=== PATIENT | male | born 1960 | race Caucasian/White ===

== ENCOUNTER 2016-09-20 10:27 | Emergency (ER) | payer OTHER ==
[~2016-09-20 10:27] MED LIST: AMLO10 PO; ASPI81 PO; ATOR40TA49 PO; CLOP75 PO; LISI-363 PO
[2016-09-20 10:29] VITALS: BP 181/93; PULSE 71; RESP 17; TEMP 98.2; O2SAT 98
--- NOTE | 2016-09-20 12:06 | PD ---
HPI Chief Complaint: Back/ Neck Pain or Injury Time Seen by Provider: 12:03 Travel History International Travel<30 days: No Contact w/Intl Traveler<30days: No Traveled to known affect area: No History of Present Illness HPI 55-year-old male presents to the emergency Department with complaint of right mid back pain with worsening since last night after working. He has had the back pain for 6 months. He has been taking Flexeril as prescribed with minimal relief of symptoms. 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 He denies paresthesias, loss of sensation, decreased range of motion, decreased strength to all extremities. Denies fever, chills, nausea, vomiting, abdominal pain. Denies IV drug use. Denies cancer. Denies change in gait. Has not taken any other medications return either treatment CVA symptoms. No known allergies. Takes Plavix for history of stent placement. History of hypertension. [facility] of [facility]. No other modifying factors or associated signs and symptoms. PFSH Past Medical History Hx Anticoagulant Therapy: Yes Blood Disorders: No Heart Rhythm Problems: No Cancer: No Cardiac Catheterization: Yes (with stent) Cardiovascular Problems: Yes High Cholesterol: Yes Chemotherapy: No Chest Pain: Yes Congestive Heart Failure: Yes Coronary Artery Disease: Yes Diminished Hearing: No Endocrine: No Genitourinary: No Hypertension: Yes Immune Disorder: No Musculoskeletal: Yes (back pain) Neurologic: No Psychiatric: No Reproductive: No Respiratory: No Myocardial Infarction: Yes (2006) Past Surgical History Abdominal Surgery: No AICD: No Arteriovenous Shunt: No Cardiac Surgery: No Coronary Stent: Yes (2006) Ear Surgery: No Endocrine Surgery: No Eye Surgery: No Genitourinary Surgery: No Gynecologic Surgery: No Insulin Pump: No Joint Replacement: No Oral Surgery: No Pacemaker: No Thoracic Surgery: No Other Surgery: Yes (HEMMORIDECTOMY) Social History Alcohol Use: Yes (6 DRINKS PER WEEK) Tobacco Use: No Substance Use: No Allergies-Medications (Allergen,Severity, Reaction): Coded Allergies: No Known Allergies (Verified , 07/26/15) Reported Meds & Prescriptions Reported Meds & Active Scripts Active Lipitor 40 Mg Tab (Atorvastatin Calcium) 40 Mg Tab 40 Mg PO HS Norvasc (Amlodipine Besylate) 10 Mg Tab 10 Mg PO DAILY 30 Days Plavix (Clopidogrel Bisulfate) 75 Mg Tab 75 Mg PO DAILY Lisinopril 20 mg (Lisinopril) 20 Mg Tab 1 Tab PO DAILY 30 Days Aspirin Low Strength (Aspirin) 81 Mg Chew 81 Mg PO DAILY 30 Days Review of Systems Except as stated in HPI: all other systems reviewed are Neg Physical Exam Narrative GENERAL: Well-nourished, well-developed male patient, in no acute distress SKIN: Warm and dry. HEAD: Atraumatic. Normocephalic. EYES: Pupils equal and round. No scleral icterus. No injection or drainage. ENT: Mucosa pink and moist. Airway patent. NECK: Trachea midline. CARDIOVASCULAR: Regular rate. RESPIRATORY: No accessory muscle use. GASTROINTESTINAL: Rounded. MUSCULOSKELETAL: Bilateral lower extremities supple and non-tense with 2+ pedal pulses and sensory intact; with full range of motion and 5/5 strength. Active dorsiflexion and extension of bilateral feet. Ambulatory with normal gait in room. Sitting up in bed at 90. No obvious deformities. No clubbing. No cyanosis. No edema. BACK: No midline point tenderness on palpation of the lumbar, thoracic spine. Tenderness on palpation of right musculature of the thoracic area. No obvious deformities. NEUROLOGICAL: Awake and alert. Oriented 3. No obvious cranial nerve deficits. Motor grossly within normal limits. Normal speech. Moves all extremities. 5/5 strength to all extremities. Sensory intact. PSYCHIATRIC: Appropriate mood and affect; insight and judgment normal. Data Data Last Documented VS Vital Signs Date Time Temp Pulse Resp B/P Pulse Ox O2 Delivery O2 Flow Rate FiO2 09/20/16 10:29 98.2 71 17 181/93 98 MDM Medical Decision Making Medical Screen Exam Complete: Yes Emergency Medical Condition: Yes Medical Record Reviewed: Yes Differential Diagnosis Muscle spasm in the back, muscle strain of back, acute exacerbation of chronic back pain Narrative Course 55-year-old male with chronic right mid thoracic back pain 6 months with exacerbation of pain since after working last night doing some heavy lifting. He has a prescription for Flexeril and has been taking it. [facility] and [facility] He last took Flexeril at 5 AM this morning. Denies IV drug use. Denies cancer. Patient is afebrile and nontoxic-appearing. He denies fever, chills, nausea, vomiting. No midline point tenderness of the thoracic or lumbar spine. Norflex administered in the ER. Patient will get prescription refilled from the [facility] for [facility]. Instructed patient to continue medications as prescribed. Patient verbalizes understanding and agreement with treatment plan. Patient is medically cleared and stable for discharge. Discussed reasons to return to the emergency department. Instructed patient to follow up with primary care provider. Patient agrees with treatment plan. The patients vital signs are stable and the patient is stable for outpatient follow-up and treatment. Patient discharged home, stable and in no acute distress. Diagnosis Primary Impression: Spasm of thoracic back muscle Additional Impression: Muscle strain of right upper back Qualified Code: S29.012A - Muscle strain of right upper back, initial encounter Referrals: Primary Care Physician Patient Instructions: General Instructions, Muscle Spasm (ED), Muscle Strain ( ED) Departure Forms: Tests/Procedures, Work Release Enter return to work date: Sep 22, 2016 Additional Instructions: Tylenol as directed and as needed for pain Continue medications as prescribed Heating pad and/or ice to affected area to reduce pain Avoid aggravating activities; increase activity as tolerated Follow-up with primary care provider Return to emergency department immediately with worsening of symptoms Med/Other Pt SpecificInfo: No Change to Meds, No Meds Exist/No RX given Disposition: DISCHARGE HOME Condition: Stable Keeley Elmore Sep 20, 2016 12:06
[2016-09-20] MEDS ORDERED: ORPHENADRINE INJ 60 MG/2 ML AMP IM ONE (12:15)
== END 2016-09-20 12:38 | disposition home or self-care (01) ==
LOC: NETRI 10:27
DX: M62.830 Muscle spasm of back (principal); S29.012A Strain of muscle and tendon of back wall of thorax, initial encounter; I10 Essential (primary) hypertension; X50.0XXA Overexertion from strenuous movement or load, initial encounter; Y93.89 Activity, other specified; Y92.9 Unspecified place or not applicable; Y99.0 Civilian activity done for income or pay; Z79.01 Long term (current) use of anticoagulants
CPT/HCPCS: 99283; J2360

== ENCOUNTER 2017-02-23 19:10 | Emergency (ER) | payer OTHER ==
[~2017-02-23] VITALS: Ht 177.8 cm; Wt 140.0 kg
[2017-02-23 19:12] VITALS: BP 138/75; PULSE 87; RESP 18; TEMP 97.7; O2SAT 97
--- NOTE | 2017-02-23 19:26 | PD ---
Physical Exam Time Seen by Provider: 19:24 Narrative 56yo M c/o "muscle cramps from top of belly to toes" and SOB today. Denies chest pain. Denies fever, diarrhea, vomiting. Had stent and angioplasty on February 10, 2017. Patient seen in triage. VS reviewed. Awaiting bed placement. Data Data Last Documented VS Vital Signs Date Time Temp Pulse Resp B/P (MAP) Pulse Ox O2 Delivery O2 Flow Rate FiO2 02/23/17 19:12 97.7 87 18 138/75 (96) 97 Room Air MDM Supervised Visit with JIM: Keeley Vicente Feb 23, 2017 19:26
[2017-02-23] MEDS ORDERED: LOSA100T PO (22:31)
[2017-02-23] MEDS ORDERED: ASPI81CH CHEW (22:31)
[2017-02-23] MEDS ORDERED: PLAV75TA29 PO (22:31)
[2017-02-23] MEDS ORDERED: ATOR40TA16 PO (22:31)
[2017-02-23] MEDS ORDERED: CHLO25TA2 PO (22:31)
[2017-02-23] MEDS ORDERED: METO25TA3 PO (22:31)
[2017-02-23] MEDS ORDERED: CYCL1TAB29 PO (22:31)
[2017-02-23] MEDS ORDERED: AMLO10TA2 PO (22:31)
[2017-02-23 22:35] VITALS: O2SAT 97
[2017-02-23] MEDS ORDERED: MORPHINE SULFATE 4 MG/ML INJ IV PUSH ONE (22:45)
[2017-02-23] MEDS ORDERED: SODIUM CHLORIDE 0.9% FLUSH 10 ML FLUSH IVF PRN (22:45)
--- NOTE | 2017-02-23 23:22 | PD ---
HPI Chief Complaint: Respiratory Distress Time Seen by Provider: 22:21 Travel History International Travel<30 days: No Contact w/Intl Traveler<30days: No Traveled to known affect area: No History of Present Illness HPI 56yo M with PMH of CAD s/p cardiac stent presents to the ED with c/o sob and generalized body cramps since 4pm today. States the pain is all over his body and it is cramping in nature. Sometimes it is in his abdomen, back, bilateral thighs. Pt has history of back pain and was seen here for back muscle spasm before. 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 Denies any chest pain. Denies any fever, cough, n/v, abdominal pain, focal weakness or numbness. PFSH Past Medical History Hx Anticoagulant Therapy: Yes Blood Disorders: No Heart Rhythm Problems: No Cancer: No Cardiac Catheterization: Yes (with stent, angioplasty 2 stents 2 weeks ago 02/23 ) Cardiovascular Problems: Yes High Cholesterol: Yes Chemotherapy: No Chest Pain: Yes Congestive Heart Failure: Yes Coronary Artery Disease: Yes Diminished Hearing: No Endocrine: No Genitourinary: No Hypertension: Yes Immune Disorder: No Musculoskeletal: Yes (back pain) Neurologic: No Psychiatric: No Reproductive: No Respiratory: No Myocardial Infarction: Yes (2006) Past Surgical History Abdominal Surgery: No AICD: No Arteriovenous Shunt: No Cardiac Surgery: No Coronary Stent: Yes (2006) Ear Surgery: No Endocrine Surgery: No Eye Surgery: No Genitourinary Surgery: No Gynecologic Surgery: No Insulin Pump: No Joint Replacement: No Oral Surgery: No Pacemaker: No Thoracic Surgery: No Other Surgery: Yes (HEMMORIDECTOMY) Family History Family Myocardial Infarction: Yes Social History Alcohol Use: Yes (6 DRINKS PER WEEK) Tobacco Use: No Substance Use: No Allergies-Medications (Allergen,Severity, Reaction): Coded Allergies: No Known Allergies (Verified , 07/26/15) Reported Meds & Prescriptions Reported Meds & Active Scripts Active Tylenol (Acetaminophen) 325 Mg Tab 650 Mg PO Q6H PRN Reported Amlodipine (Amlodipine Besylate) 10 Mg Tab 10 Mg PO DAILY Losartan (Losartan Potassium) 100 Mg Tab 100 Mg PO DAILY Atorvastatin (Atorvastatin Calcium) 40 Mg Tab 40 Mg PO HS Chlorthalidone 25 Mg Tab 25 Mg PO DAILY Plavix (Clopidogrel Bisulfate) 75 Mg Tab 75 Mg PO DAILY Flexeril (Cyclobenzaprine HCl) 10 Mg Tab 10 Mg PO TID Metoprolol Tartrate 25 Mg Tab 25 Mg PO DAILY Aspirin 81 Mg Chew 81 Mg CHEW DAILY Review of Systems Except as stated in HPI: all other systems reviewed are Neg Physical Exam Narrative GENERAL: 56yo M in mild distress. SKIN: Focused skin assessment warm/dry. HEAD: Atraumatic. Normocephalic. EYES: Pupils equal and round. No scleral icterus. No injection or drainage. ENT: No nasal bleeding or discharge. Mucous membranes pink and moist. NECK: Trachea midline. No JVD. CARDIOVASCULAR: Regular rate and rhythm. No murmur appreciated. RESPIRATORY: No accessory muscle use. Clear to auscultation. Breath sounds equal bilaterally. GASTROINTESTINAL: Abdomen soft, mild upper abdomen pain. No rebound tenderness or guarding. BACK: No midline ttp thoracic or lumbar spine. MUSCULOSKELETAL: No obvious deformities. No clubbing. No cyanosis. No edema. NEUROLOGICAL: Awake and alert. No obvious cranial nerve deficits. Motor grossly within normal limits. Normal speech. PSYCHIATRIC: Appropriate mood and affect; insight and judgment normal. Data Data Last Documented VS Vital Signs Date Time Temp Pulse Resp B/P (MAP) Pulse Ox O2 Delivery O2 Flow Rate FiO2 02/23/17 22:35 97 Room Air 02/23/17 22:27 73 02/23/17 19:12 97.7 18 Orders Orders Basic Metabolic Panel (Bmp) (02/23/17 22:32) B-Type Natriuretic Peptide (02/23/17 22:32) Complete Blood Count With Diff (02/23/17 22:32) Magnesium (Mg) (02/23/17 22:32) Prothrombin Time / Inr (Pt) (02/23/17 22:32) Act Partial Throm Time (Ptt) (02/23/17 22:32) Troponin I (02/23/17 22:32) Chest, Single Ap (02/23/17 22:32) Ecg Monitoring (02/23/17 22:32) Bilateral Bp Monitoring (02/23/17 22:32) Iv Access Insert/Monitor (02/23/17 22:32) Oximetry (02/23/17 22:32) Oxygen Administration (02/23/17 22:32) Sodium Chloride 0.9% Flush (Ns Flush) (02/23/17 22:45) Morphine Inj (Morphine Inj) (02/23/17 22:45) Creatine Kinase (Cpk) (02/23/17 23:49) Ct Abd/Pel W/O Iv Contrast (02/23/17 ) CKMB (02/23/17 22:50) CKMB% (02/23/17 22:50) Sodium Chlor 0.9% 1000 Ml Inj (Ns 1000 M (02/24/17 01:15) Diazepam (Valium) (02/24/17 01:15) Labs Laboratory Tests Test 02/23/17 22:50 White Blood Count 11.7 TH/MM3 Red Blood Count 5.58 MIL/MM3 Hemoglobin 13.9 GM/DL Hematocrit 42.2 % Mean Corpuscular Volume 75.7 FL Mean Corpuscular Hemoglobin 24.9 PG Mean Corpuscular Hemoglobin Concent 32.9 % Red Cell Distribution Width 17.5 % Platelet Count 217 TH/MM3 Mean Platelet Volume 9.4 FL Neutrophils (%) (Auto) 74.6 % Lymphocytes (%) (Auto) 16.6 % Monocytes (%) (Auto) 7.4 % Eosinophils (%) (Auto) 0.6 % Basophils (%) (Auto) 0.8 % Neutrophils # (Auto) 8.7 TH/MM3 Lymphocytes # (Auto) 1.9 TH/MM3 Monocytes # (Auto) 0.9 TH/MM3 Eosinophils # (Auto) 0.1 TH/MM3 Basophils # (Auto) 0.1 TH/MM3 CBC Comment DIFF FINAL Differential Comment Prothrombin Time 11.4 SEC Prothromb Time International Ratio 1.0 RATIO Activated Partial Thromboplast Time 26.0 SEC Blood Urea Nitrogen 21 MG/DL Creatinine 1.84 MG/DL Random Glucose 127 MG/DL Calcium Level 9.7 MG/DL Magnesium Level 2.2 MG/DL Sodium Level 133 MEQ/L Potassium Level 3.9 MEQ/L Chloride Level 98 MEQ/L Carbon Dioxide Level 20.6 MEQ/L Anion Gap 14 MEQ/L Estimat Glomerular Filtration Rate 38 ML/MIN Total Creatine Kinase 517 U/L Creatine Kinase MB 3.0 NG/ML Creatine Kinase MB % 0.6 % Troponin I LESS THAN 0.02 NG/ML B-Type Natriuretic Peptide 5 PG/ML MDM Medical Decision Making Medical Screen Exam Complete: Yes Emergency Medical Condition: Yes Interpretation(s) EKG: NSR 77bpm. Normal axis. No ST segment elevation or depression. TWI V2. Differential Diagnosis Muscle spasm vs. rhabdomyolysis vs. chronic back pain vs. dehydration vs. colitis Narrative Course 56yo M with complaint of muscle cramps in different parts of his body. Labs reviewed, WBC 11.7. BUN/creatinine elevated at 21/1.84. This is new compare to 07/28/15. CPK mildly elevated at 517. Pt given NS IVF. Troponin negative. BNP 5. Pt is tolerating PO and can hydrate orally. CXR negative. CTa/p showed no acute finding. Pt given morphine and valium with improvement of pain. Pt ambulating in the ED. Pt wants to go home. I informed him of the elevated creatinine and need to follow up with PMD and think that urgent outpatient follow up and oral hydration is reasonable since pt does not want to stay. Return precautions given. Diagnosis Primary Impression: JULIANNA (acute kidney injury) Patient Instructions: General Instructions Departure Forms: Tests/Procedures Additional Instructions: Please drink plenty of fluids to hydrate yourself. Please follow up with your primary care physician in 1-2 days for elevated creatinine at 1.84. Return to the ED if symptoms worsen. Med/Other Pt SpecificInfo: Prescription(s) given Scripts Acetaminophen (Tylenol) 325 Mg Tab 650 MG PO Q6H Y for PAIN SCALE 1 TO 4, #20 TAB 0 Refills Prov: Lore Stovall 02/24/17 Disposition: 01 DISCHARGE HOME Condition: Stable Lore Stovall DO Feb 23, 2017 23:22
[2017-02-23 23:25] LABS: AUTOMATED NEUTROPHIL # 8.7 TH/MM3 (1.8-7.7); BASOPHIL # 0.1 TH/MM3 (0-0.2); BASOPHIL % 0.8 % (0.0-2.0); EOSINOPHIL # 0.1 TH/MM3 (0-0.4); EOSINOPHIL % 0.6 % (0.0-4.0); HEMATOCRIT 42.2 % (39.0-51.0); HEMO FLAGS DIFF FINAL; LYMPH % 16.6 % (9.0-44.0); LYMPHOCYTE # 1.9 TH/MM3 (1.0-4.8); MEAN CELL VOLUME 75.7 FL (80.0-100.0); MEAN CORPUSCULAR HEMOGLOBIN 24.9 PG (27.0-34.0); MEAN CORPUSCULAR HGB CONC 32.9 % (32.0-36.0); MONO % 7.4 % (0.0-8.0); NEUT % 74.6 % (16.0-70.0); PLATELET COUNT 217 TH/MM3 (150-450); RED BLOOD COUNT 5.58 MIL/MM3 (4.50-5.90); RED CELL DISTRIBUTION WIDTH 17.5 % (11.6-17.2); WHITE BLOOD COUNT 11.7 TH/MM3 (4.0-11.0)
[2017-02-23 23:41] LABS: ANION GAP 14 MEQ/L (5-15); BICARBONATE 20.6 MEQ/L (21.0-32.0); BLOOD UREA NITROGEN 21 MG/DL (7-18); CHLORIDE 98 MEQ/L (98-107); GLOMERULAR FILTRATION RATE 38 ML/MIN (>89); MAGNESIUM 2.2 MG/DL (1.5-2.5); POTASSIUM 3.9 MEQ/L (3.5-5.1); SODIUM (NA) 133 MEQ/L (136-145)
[2017-02-23 23:44] LABS: PROTHROMBIN TIME - PATIENT 11.4 SEC (9.8-11.6)
--- NOTE | 2017-02-24 00:34 | RADRPT ---
EXAM DATE/TIME: 02/24/2017 00:18 [facility] COMPARISON: No previous studies available for comparison. INDICATIONS : Upper abdominal pain. ORAL CONTRAST: No oral contrast ingested. RADIATION DOSE: 36.23 CTDIvol (mGy) ; Patient body habitus MEDICAL HISTORY : Cardiovascular disease. Hypertension. SURGICAL HISTORY : Coronary artery stent. ENCOUNTER: Initial ACUITY: 1 day PAIN SCALE: 10/10 LOCATION: Bilateral abdomen TECHNIQUE: Volumetric scanning of the abdomen and pelvis was performed. Using automated exposure control and ad justment of the mA and/or kV according to patient size, radiation dose was kept as low as reasonably achievable to obtain optimal diagnostic quality images. DICOM format image data is available electro nically for review and comparison. FINDINGS: Patient arm positioning causes artifact and degrades image quality. LOWER LUNGS: There is a 3 mm subpleural nodule in the left lower lobe. Coronary artery calcification is present. LIVER: Diffuse decreased density without lesion. There is no dilation of the biliary tree. No calcified ga llstones. SPLEEN: Normal size without lesion. PANCREAS: Within normal limits. KIDNEYS: Normal in size and shape. There is no mass, stone, or hydronephrosis. ADRENAL GLANDS: Within normal limits. VASCULAR: There is no aortic aneurysm. There is moderate to severe atherosclerotic disease. BOWEL/MESENTERY: The stomach, small bowel, and colon demonstrate no acute abnormality. There is no free intraperitone al air or fluid. ABDOMINAL WALL: Within normal limits. RETROPERITONEUM: There is no lymphadenopathy. BLADDER: No wall thickening or mass. REPRODUCTIVE: Within normal limits. INGUINAL: There is no lymphadenopathy or hernia. MUSCULOSKELETAL: There are degenerative changes of the lumbar spine. Bone island is present in the femoral heads bilat erally. CONCLUSION: 1. No acute finding is identified on this noncontrasted CT to explain the clinical symptoms. 2. Nonacute findings include hepatic steatosis, moderate to severe atherosclerotic disease, and coron cristobal artery calcification. Joel Colvin MD on February 24, 2017 at 0:27 Board Certified Radiologist. This report was verified electronically.
[2017-02-24] MEDS ORDERED: SODIUM CHLOR 0.9% 1000 ML INJ 1,000 ML IV ONE (01:15)
[2017-02-24] MEDS ORDERED: DIAZEPAM 5 MG TAB PO ONE (01:15)
--- NOTE | 2017-02-24 02:22 | RADRPT ---
EXAM DATE/TIME: 02/24/2017 02:14 [facility] COMPARISON: CHEST SINGLE AP, July 26, 2015, 12:51. INDICATIONS : Chest pain MEDICAL HISTORY : None. SURGICAL HISTORY : None. ENCOUNTER: Initial ACUITY: 1 day PAIN SCORE: 7/10 LOCATION: Bilateral chest FINDINGS: Portable AP view of the chest demonstrates a normal-sized cardiac silhouette. No effusion, consolidat ion, or pneumothorax is visualized. The bones and soft tissues demonstrate no acute abnormality. CONCLUSION: No acute cardiopulmonary abnormality is identified. Joel Colvin MD on February 24, 2017 at 2:20 Board Certified Radiologist. This report was verified electronically.
[2017-02-24] MEDS ORDERED: TYLE325T PO ×2 (04:07→04:26)
--- NOTE | 2017-02-25 00:46 | EKG ---
Date Performed: 02/23/2017 Time Performed: 22:24:30 PTAGE: 56 years EKG: Sinus rhythm INCOMPLETE RIGHT BUNDLE BRANCH BLOCK NONSPECIFIC T-WAVE ABNORMALITY BORDERLINE ECG Compared to the PREVIOUS TRACING from 07/27/15, incomplete right bundle branch block is new DOCTOR: Neal Garay Interpretating Date/Time 02/25/2017 00:45:54
== END 2017-02-24 04:27 | disposition home or self-care (01) ==
LOC: NEPC 19:10
DX: N17.9 Acute kidney failure, unspecified (principal); R06.02 Shortness of breath; M79.1 Myalgia; R94.31 Abnormal electrocardiogram [ECG] [EKG]; I10 Essential (primary) hypertension; E78.00 Pure hypercholesterolemia, unspecified; I25.2 Old myocardial infarction; Z98.890 Other specified postprocedural states; Z79.01 Long term (current) use of anticoagulants; Z86.79 Personal history of other diseases of the circulatory system; Z87.39 Personal history of other diseases of the musculoskeletal system and connective tissue
CPT/HCPCS: 71010; 74176; 80048; 82550; 82552; 83735; 83880; 84484; 85025; 85610; 85730; 93005; 96374; 99285; J2270; J7030

== ENCOUNTER 2017-10-31 16:31 | Inpatient (IN) | payer OTHER ==
[~2017-10-31] VITALS: Ht 175.3 cm; Wt 134.5 kg
[~2017-10-31 16:31] MED LIST changes: -AMLO10 PO; +AMLO10TA2 PO; +ASPI-516 CHEW; -ASPI81 PO; +ATOR40TA16 PO; -ATOR40TA49 PO; +CHLO25TA2 PO; -CLOP75 PO; +CYCL10TA PO; -LISI-363 PO; +LOSA100T PO; +METO25TA3 PO; +PLAV75TA29 PO; +TYLE325T PO
[2017-10-31] MEDS ORDERED: HEPARIN-NS/PF FLUSH BAG 2,000 ML IV FLUSH ONE (16:39)
[2017-10-31] MEDS ORDERED: MIDAZOLAM HCL 2 MG/2 ML VIAL ONE (16:54)
[2017-10-31] MEDS ORDERED: HEPARIN SODIUM - IV 10,000 UNITS/10 ML VIAL ONE (17:05)
[2017-10-31] MEDS ORDERED: NITROGLYCERIN-D5W 50 MG/250 ML 250 ML ONE (17:37)
[2017-10-31] MEDS ORDERED: TICAGRELOR 90 MG TAB PO ONE (17:37)
[2017-10-31] MEDS ORDERED: MORPHINE SULFATE 10 MG/ML INJ ONE (17:49)
[2017-10-31] MEDS ORDERED: STERILE WATER FOR INJECTION 10 ML VIAL ONE ×2 (18:00→18:44)
[2017-10-31] MEDS ORDERED: CANGRELOR TETRASODIUM 50,000 MCG VIAL ONE ×2 (18:00→18:44)
[2017-10-31] MEDS ORDERED: ONDANSETRON HCL 4 MG/2 ML VIAL ONE (19:17)
--- NOTE | 2017-10-31 19:48 | CATHPROC ---
[facility]ur HIS Report Study Information Study Number Admission Scheduled Start Study Start [id number] Oct 31 2017 4:31PM 10/31/2017 Oct 31 2017 4:54PM [facility] Cardiac Catheterization Admit Source Facility Department Transfer in from another acute care facility [facility] - Tar Worker Physician and Clinical Staff Initial Neal Bryant Television Writer Tisha Hoang RN Television WriterTisha Astudillo RN Recorder Erinn Jonas BSN Scrub Broderick GabrielRT(R) Procedures Performed Procedure Location (Site) Vessel Name Coronary Angiograms LCA Left Coronary Coronary Angiograms RCA Right Coronary Drug Eluting Inflatio DIAG Prox Left Coronary Drug Eluting Inflatio LAD Prox Left Coronary L Heart Cath PTCA DIAG Prox Left Coronary PTCA LAD Prox Left Coronary Wire insertion Fem Art (right) Femoral Art Equipment Time Cloth Sponger Description Size Mfg Part Number Used/Scraped [id number] 17:43 [employer] WIRE, ASAHI PROWATER 180CM 180CM Used *[id number] 18:27 [employer] WIRE, ASAHI PROWATER 180CM 180CM Used *[id number] WIRE, BALANCE MIDDLEWEIGHT [id number] 17:09 [employer] 190CM Used 190CM *[id number] WIRE, WHISPER W/HYDROCOAT [id number] 17:18 [employer] 190CM Used 190CM *[id number] TRANSDUCER, TRUWAVE [id number] 17:02 ALANIZ * Used W/STOCKCOCK *[id number] INTRODUCER SET, [id number] 17:02 [employer] FR 5 Used MICROPUNCTURE *[id number] INTRODUCER SET, 17:02 [employer] FR 5 [id number] *[id number] Used MICROPUNCTURE STIFF [id number] *[id number] 18:57 DAIG[facility] ANGIOSEAL, FR6 VIP FR 6 Used *[id number] 17:02 [email or web address] INDUSTRIES PACK, CCL CUSTOM * Used *[id number] 17:48 MEDTRONIC BALLOON, 1.5 X 15MM EUPHORA 15MM Used *[id number] BALLOON, 2.0 X 12MM NC [id number] 18:43 MEDTRONIC 12MM Used EUPHORA *[id number] [id number] 17:56 MED[employer]IC BALLOON, 2.0 X 15MM EUPHORA 15MM Used *[id number] [id number] 17:11 MEDTR[employer]IC BALLOON, 2.0 X 15MM EUPHORA 15MM Used *3353914 BALLOON, 2.0 X 6MM NC [id number] 18:15 MEDTRONIC 6MM Used EUPHORA *3706949 BALLOON, 2.25 X 15MM NC [id number] 17:40 MEDTRONIC 15MM Used EUPHORA *[id number] [id number] 18:24 MEDTRONIC STENT, 2.0 12MM DULCE 2.0 X 12MM Used *[id number] 17:31 MEDTRONIC STENT, 2.25 26MM DULCE 2.25 26MM [id number] Used WIRE, COUGAR LS 190CM [id number] 17:41 MEDTRONIC 190CM Used (HYDROPHILIC) *[id number] 17:04 MEDTRONIC/AVE EBU 3.5 Z2 GUIDE CATHETER FR 6 Used *[id number] [id number] 17:24 [employer] MEDICAL 30 FRANCK INDEFLATOR Used *3578934 [id number] 17:[address] WIRE, 3MMJ .035 180CM 180CM Used *3003874 [id number] 17:02 NAMIC MANIFOLD, 4 PORT * Used *[id number] 17:02 [employer] OMNIPAQUE, 350 MG, 150ML 150ML [id number] Used 17:29 [employer]COMED OMNIPAQUE, 350 MG, 150ML 150ML [id number] Used 18:53 [employer]COMED OMNIPAQUE, 350 MG, 150ML 150ML [id number] Used 18:53 [employer] OMNIPAQUE, 350 MG, 150ML 150ML [id number] Used [id number] 17:02 [employer],WARM AIR CCL * Used *[id number] 17:02 TERUMO MEDICAL SHEATH, FR5 TERUMO (10CM) FR 5 Used *[id number] [id number] 17:02 [employer]UM[employer] MEDICAL SHEATH, FR6 TERUMO (10CM) FR 6 Used *[id number] Equipment Model, Serial, Lot Number and Expiration Data Description Model Number Serial Number Lot Number Expiration Date ANGIOSEAL, FR6 VIP [id number] 06-25-2018 STENT, 2.0 12MM DULCE [id number] 06-29-2019 STENT, 2.25 26MM DULCE [id number] 07-04-2019 History: Allergies Allergy Reaction No Known Allergies History: Risk Factors Family History of Hypertension Dyslipidemia Previous MS Previous Heart Failure Premature CAD Yes No No Yes No Prior Valve Prior PCI Prior PCIDate Prior CABG Surgery No Yes 10/30/2017 No Cerebrovascular Peripheral Artery Chronic Lung On Dialysis Diabetes Diabetes Therapy Disease Disease Disease No No No Yes Yes Oral History: Symptoms/Diagnosis Selection Items Chest pain History: Stress Tests Stress or Imaging Studies Performed No History: MS/CV Data Previous Cath Date 10/30/2017 History: Other Current Smoker Method Quit Packs a Day Years Used Pack Years No Cigarettes 3 Years Ago 1 40 40 Labs Hgb (g/dl) Hct (%) WBC (l/cumm) Platelets (thousands) 11.60-17.00 35.00-51.00 4.00-11.00 150.00-450.00 12.3 37.5 11.3 317 Glucose (mg/dl) BUN (mg/dl) Creatinine (mg/dl) BUN:Creatinine (1:x) 74.00-106.00 7.00-18.00 0.50-1.30 10.00-20.00 131 24 1.4 17.1 Na (meq/l) K (meq/l) 136.00-145.00 3.50-5.10 141 3.1 INR (PTT:PT) 0.90-1.10 1 Troponin I (ng/ml) CPK (u/l) CPK-MB (ng/ML) 0.02-0.05 26.00-308.00 0.50-3.60 2.2 353 15.7 Medication Medication Total Dose (Bolus/Oral) Medication Total Dosage/Unit 1% XYLOCAINE 20 mL BRILINTA 180 mg FENTANYL 200 mcg HEPARIN 11706 units MORPHINE 8 mg NTG (IC) 800 mcg VERSED 1 mg ZOFRAN 4 mg Medications (Bolus/Oral) Medication Time Given Dosage/Unit Administered By Reason 1% XYLOCAINE 10/31/2017 4:56:09 PM 20 mL Neal Garay 20 mL 1% XYLOCAINE given in lab by Neal Garay in Right Groin via Subcutaneous. VERSED 10/31/2017 4:58:30 PM 0.5 mg Tisha Sargent 0.5 mg VERSED given in lab by Tisha Sargent RN via Peripheral IV. Ordered by Neal Garay FENTANYL 10/31/2017 4:59:43 PM 25 mcg Tisha Sargent 25 mcg FENTANYL given in lab by Tisha Sargent RN via Peripheral IV. Ordered by Neal Garay FENTANYL 10/31/2017 5:00:06 PM 25 mcg Arie, Tisha 25 mcg FENTANYL given in lab by Tisha Sargent RN via Peripheral IV. Ordered by Neal Garay HEPARIN 10/31/2017 5:08:35 PM 9500 units Tisha Sargent 9500 units HEPARIN given in lab by Tisha Sargent RN via Peripheral IV. Ordered by Uyen Garay FENTANYL 10/31/2017 5:09:06 PM 25 mcg Tisha Sargent 25 mcg FENTANYL given in lab by Tisha Sargent RN via Peripheral IV. Ordered by Neal Garay VERSED 10/31/2017 5:24:22 PM 0.5 mg Tisha Sargent 0.5 mg VERSED given in lab by Tisha Sargent RN via Peripheral IV. Ordered by Neal Garay FENTANYL 10/31/2017 5:26:05 PM 25 mcg Tisha Sargent 25 mcg FENTANYL given in lab by Tisha Sargent RN via Peripheral IV. Ordered by Neal Garay NTG (IC) 10/31/2017 5:27:41 PM 200 mcg Neal Garay 200 mcg NTG (IC) given in lab by Neal Garay via Intra-coronary. Ordered by Neal Garay HEPARIN 10/31/2017 5:33:08 PM 2000 units Tisha Sargent 2000 units HEPARIN given in lab by Tisha Sargent RN via Peripheral IV. Ordered by Uyen Garay NTG (IC) 10/31/2017 5:35:34 PM 200 mcg Neal Garay 200 mcg NTG (IC) given in lab by Neal Garay via Intra-coronary. Ordered by Neal Garay FENTANYL 10/31/2017 5:44:50 PM 50 mcg Tisha Sargent 50 mcg FENTANYL given in lab by Tisha Sargent RN via Peripheral IV. Ordered by Neal Garay MORPHINE 10/31/2017 5:50:05 PM 2 mg Arie, Tisha 2 mg MORPHINE given in lab by Tisha Sargent RN via Peripheral IV. Ordered by Neal Garay NTG (IC) 10/31/2017 5:58:46 PM 200 mcg Neal Garay 200 mcg NTG (IC) given in lab by Neal Garay via Intra-coronary. Ordered by Neal Garay NTG (IC) 10/31/2017 6:08:36 PM 200 mcg Neal Garay 200 mcg NTG (IC) given in lab by Neal Garay via Intra-coronary. Ordered by Neal Garay HEPARIN 10/31/2017 6:17:45 PM 2000 units Tisha Sargent 2000 units HEPARIN given in lab by Tisha Sargent RN via Peripheral IV. Ordered by Uyen Garay FENTANYL 10/31/2017 6:37:28 PM 50 mcg Tisha Sargent 50 mcg FENTANYL given in lab by Tisha Sargent RN via Peripheral IV. Ordered by Neal Garay MORPHINE 10/31/2017 6:46:39 PM 2 mg Arie, Tisha 2 mg MORPHINE given in lab by Tisha Sargent RN via Peripheral IV. Ordered by Neal Garay for shoulder pain MORPHINE 10/31/2017 6:58:32 PM 2 mg Arie, Tisha 2 mg MORPHINE given in lab by Tisha Sargent RN via Peripheral IV. Ordered by Neal Garay for pain to shoulder MORPHINE 10/31/2017 7:00:52 PM 2 mg Burleson, Tisha 2 mg MORPHINE given in lab by Tisha Sargent RN via Peripheral IV. Ordered by Neal Garay BRILINTA 10/31/2017 7:11:30 PM 180 mg Tisha Sargent 180 mg BRILINTA given in lab by Tisha Sargent RN via Oral. Ordered by Neal Garay. ZOFRAN 10/31/2017 7:17:57 PM 4 mg Tisha Sargent 4 mg ZOFRAN given in lab by Tisha Sargent RN in Left Antecubital via Central IV. Ordered by Neal Garcia Medication (Drip) Medication Time Given Dosage/Unit Concentration/Unit Diluent (ml) Solution IV Solutions 10/31/2017 4:54:28 PM 50 mL (IV) NaCl .9 IV Solutions given in lab by Tisha Hoang, LAWRENCE via Peripheral IV. Pump/Drip Flow using NaCl .9. Ord ered by Neal Garay AT [facility] KENGREAL BOLUS 10/31/2017 6:07:05 PM 20 mL 20 mL KENGREAL BOLUS given in lab by Tisha Sargent, LAWRENCE via Peripheral IV. Ordered by Kiley Garay KENGREAL DRIP 10/31/2017 6:10:40 PM 3.992 mcg/kg/min 50 mg 250 NaCl .9 4 mcg/kg/min KENGREAL DRIP given in lab by Tisha Sargent, LAWRENCE via Peripheral IV. Pump/Drip Flow = 16 3 ml/hr using NaCl .9 with a concentration of 50 mg in 250 ml. Ordered by Neal Garay Initial Case Assessment Initial Case Assessment Cardiovascular HR Rhythm NIBP Chest Pain 65 SR 167/84 4 Edema Present Skin color Skin Mild Normal Warm Dry Circulatory - Right Pulses Dorsalis Pedis Femoral 1 1 Scale (0,1,2,3,4,d) Circulatory - Left Pulses Dorsalis Pedis Femoral 1 1 Scale (0,1,2,3,4,d) Circulatory - Lower Extremities Color Lower Right Color Lower Left Normal Normal Neurological State Oriented to time-place- Alert Moves all extremities person Respiration - General Respiration Rate SpO2 (%) O2 (lpm) (B/min) 18 100 2 Final Case Assessment Cardiovascular HR Rhythm NIBP 81 SR 137/57 Edema Present Skin color Skin Mild Normal Warm Dry Circulatory - Right Pulses Dorsalis Pedis Femoral 1 1 Scale (0,1,2,3,4,d) Circulatory - Left Pulses Dorsalis Pedis Femoral 1 1 Scale (0,1,2,3,4,d) Circulatory - Lower Extremities Color Lower Right Color Lower Left Normal Normal Neurological State Oriented to time-place- Alert Moves all extremities person Respiration - General Respiration Rate SpO2 (%) O2 (lpm) (B/min) 18 100 2 Chronological Log Time Study Chronological Log 16:40:11 MD arrived. 16:40:48 Patient arrived via Bed. 16:50:35 Right groin prepped with 2% chlorhexidine, and draped after a 3 min. waiting time. Assessment: Initial Case, HR=65 BPM, Rhythm=SR, YYJL=756/84 mmhg, Chest Pain=4, Edema=Mild, Col or=Normal, Skin = Warm, Dry Right Pulses: Geovanny Ped=1, Femoral=1 Left Pulses: Geovanny Ped=1, Femoral=1 16:52:02 Lower Right Extremities: Color=Normal Lower Left Extremities: Color=Normal Neurological: State=Alert, Ox3, INGRAM Respiration: Resp=18 B/min, NvJ9=169 %, O2=2 lpm Vitals capture started with the following parameters, Patient=Adult, Interval=5 min, Initial Pr zvemwz=480 mmHg, 16:53:36 Deflation Rate=5 mmHg, Cuff placed on Right Ankle 16:53:53 Patient Name, D.O.B, / Armband Verified By R.N. 16:53:54 Consent signed by the physician and the patient and verified by the Tar Worker staff. 16:54:00 Immediate Presedation assesment performed by physician. 16:54:18 Pressure channel 1 zeroed. 16:54:25 Disposable Defibrillator Pads Placed On Patient. 16:54:27 Kenyatta Prominences Protected 16:54:27 A # 20 IV was noted in the Antecubital (right). Grade = 0 IV Solutions given in lab by Tisha Hoang RN via Peripheral IV. Pump/Drip Flow using NaCl . 9. Ordered by Jarrod 16:54:28 Neal Lockhart. AT [facility] 16:54:28 History and physical on the chart or being dictated. 16:54:31 Assessment: Initial Case Time Out. Correct patient, correct procedure, correct physician, power injector not loaded with contrast with surgical 16:55:37 team present. Time Out Concurred by MD and individual staff in procedure. 16:55:44 Case Start 16:56:09 20 mL 1% XYLOCAINE given in lab by Neal Garay in Right Groin via Subcutaneous. 16:56:45 Reference ECG taken 16:57:03 A # 20 IV was noted in the Antecubital (left). Grade = 0 16:57:23 HR=67 bpm, UGJG=957/99 mmhg, JrN1=658.0 %, Resp=11 B/min, Pain=4, Umair=10, Oconnor=2 16:58:30 0.5 mg VERSED given in lab by Tisha Sargent, LAWRENCE via Peripheral IV. Ordered by Jaz Garay 16:59:43 25 mcg FENTANYL given in lab by Tisha Sargent RN via Peripheral IV. Ordered by Neal Garay 17:00:06 25 mcg FENTANYL given in lab by Tisha Sargent, LAWRENCE via Peripheral IV. Ordered by Neal Garay 17:01:15 Access site was Right Femoral Artery. 17:01:23 A INTRODUCER SET, MICROPUNCTURE FR 5 was advanced into the Fem Art (right) using the Percut aneous technique. A SHEATH, FR6 TERUMO (10CM) FR 6 was exchanged in the Fem Art (right). This was necessary in or vick to 17:01:56 accomodate a larger catheter. 17:02:24 HR=70 bpm, JNNU=566/81 mmhg, SpO2=99.0 %, Resp=16 B/min, Pain=4, Umair=10, Oconnor=2 17:02:56 An injection in the Fem Art (right) was made through the SHEATH, FR6 TERUMO (10CM) FR 6. A JR 4.0 INFINITI CATHETER FR 5 was advanced over a wire. OMNIPAQUE, 350 MG, 150ML 150ML was us ed for 17:03:53 injections. Recorded Pressure: LV, HR=66, Condition=Condition 1 17:04:46 (Left Ventricle) LV 150/11/33 Recorded Pressure: LV, Ao, HR=66, Condition=Condition 1 17:04:55 (Left Ventricle) LV 146/4/51, (Aorta) Ao 152/70/100 17:05:23 The RCA was injected and visualized at various angles. OMNIPAQUE, 350 MG, 150ML 150ML used . After removing the current catheter a EBU 3.5 Z2 GUIDE CATHETER FR 6 was advanced over a WIRE, 3MMJ .035 17:06:43 180CM 180CM. Recorded Pressure: Ao, HR=74, Condition=Condition 1 17:07:22 (Aorta) Ao 151/73/104 17:07:23 HR=73 bpm, ZIDK=441/87 mmhg, SqH7=507.0 %, Resp=15 B/min, Pain=4, Umair=10, Oconnor=2 17:07:55 The LCA was injected and visualized at various angles. OMNIPAQUE, 350 MG, 150ML 150ML used . 17:08:35 9500 units HEPARIN given in lab by Tisha Sargent RN via Peripheral IV. Ordered by Neal Garcia 17:09:06 25 mcg FENTANYL given in lab by Tisha Sargent RN via Peripheral IV. Ordered by Neal Garay 17:10:07 A WIRE, BALANCE MIDDLEWEIGHT 190CM 190CM was inserted via Fem Art (right). 17:12:33 HR=76 bpm, GNHX=552/49 mmhg, UmO0=520.0 %, Resp=16 B/min, Umair=10, Oconnor=2 A BALLOON, 2.0 X 15MM EUPHORA 15MM was inserted over WIRE, BALANCE MIDDLEWEIGHT 190CM 190CM via the 17:15:25 Fem Art (right). 17:17:28 HR=73 bpm, PEAI=100/92 mmhg, FpK9=006.0 %, Resp=10 B/min, Umair=10, Oconnor=2 17:18:13 Balloon Removed. 17:18:21 Wire removed 17:18:49 A WIRE, WHISPER W/HYDROCOAT 190CM 190CM was inserted via Fem Art (right). A BALLOON, 2.0 X 15MM EUPHORA 15MM was inserted over WIRE, WHISPER W/HYDROCOAT 190CM 190CM via the 17:21:42 Fem Art (right). 17:22:29 HR=76 bpm, URKV=884/90 mmhg, HwT9=548.0 %, Resp=10 B/min, Umair=10, Oconnor=2 17:22:41 Interventional wire has crossed the lesion A BALLOON, 2.0 X 15MM EUPHORA 15MM over a WIRE, WHISPER W/HYDROCOAT 190CM 190CM in the LAD Prox was 17:23:06 inflated using a 30 FRANCK INDEFLATOR at 8 franck for 10 sec. 17:24:22 0.5 mg VERSED given in lab by Tisha Sargent, LAWRENCE via Peripheral IV. Ordered by Jaz Garay A BALLOON, 2.0 X 15MM EUPHORA 15MM over a WIRE, WHISPER W/HYDROCOAT 190CM 190CM in the LAD Prox was 17:25:28 inflated using a 30 FRANCK INDEFLATOR at 8 franck for 10 sec. A BALLOON, 2.0 X 15MM EUPHORA 15MM over a WIRE, WHISPER W/HYDROCOAT 190CM 190CM in the LAD Prox was 17:25:39 inflated using a 30 FRANCK INDEFLATOR at 8 franck for 10 sec. 17:26:05 25 mcg FENTANYL given in lab by Tisha Sargent, LAWRENCE via Peripheral IV. Ordered by Neal Garay 17:26:22 Balloon Removed. 17:26:43 Activated Clotting Time Drawn 17:27:41 200 mcg NTG (IC) given in lab by Neal Garay via Intra-coronary. Ordered by Neal Palencia 17:27:56 HR=80 bpm, BZXW=301/92 mmhg, SpO2=99.0 %, Resp=14 B/min, Umair=10, Oconnor=2 17:31:53 ACT (Normal Range 90-180) = 255 17:32:31 HR=75 bpm, IDZG=563/76 mmhg, SpO2=97.0 %, Resp=12 B/min, Umair=10, Oconnor=2 A STENT, 2.25 26MM DULCE 2.25 26MM was advanced through a EBU 3.5 Z2 GUIDE CATHETER FR 6 over a WIRE, 17:32:51 WHISPER W/HYDROCOAT 190CM 190CM. 17:33:08 2000 units HEPARIN given in lab by Tisha Sargent, LAWRENCE via Peripheral IV. Ordered by Neal Garcia A STENT, 2.25 26MM DULCE 2.25 26MM was deployed using a 30 FRANCK INDEFLATOR at 12 atmospheres for 30 seconds 17:33:44 in the LAD Prox. 17:34:50 Delivery device removed 17:35:34 200 mcg NTG (IC) given in lab by Neal Garay via Intra-coronary. Ordered by Neal Palencia A BALLOON, 2.0 X 15MM EUPHORA 15MM was inserted over WIRE, WHISPER W/HYDROCOAT 190CM 190CM via the 17:37:10 Fem Art (right). 17:37:26 HR=77 bpm, JUIL=230/69 mmhg, SpO2=96.0 %, Resp=10 B/min, Umair=10, Oconnor=2 A BALLOON, 2.25 X 15MM NC EUPHORA 15MM over a WIRE, WHISPER W/HYDROCOAT 190CM 190CM in the LAD Prox 17:37:32 was inflated using a 30 FRANCK INDEFLATOR at 16 franck for 10 sec. A BALLOON, 2.25 X 15MM NC EUPHORA 15MM over a WIRE, WHISPER W/HYDROCOAT 190CM 190CM in the LAD Prox 17:38:13 was inflated using a 30 FRANCK INDEFLATOR at 16 franck for 10 sec. A BALLOON, 2.25 X 15MM NC EUPHORA 15MM over a WIRE, WHISPER W/HYDROCOAT 190CM 190CM in the LAD Prox 17:38:46 was inflated using a 30 FRANCK INDEFLATOR at 16 franck for 10 sec. 17:39:34 Balloon Removed. 17:40:47 A WIRE, BMW 190 cm was inserted via Fem Art (right) to the diag 17:42:27 HR=77 bpm, UBPG=874/82 mmhg, SpO2=99.0 %, Resp=13 B/min, Umair=10, Oconnor=2 17:43:20 BMW wire removed 17:43:33 A WIRE, ASAHI PROWATER 180CM 180CM was inserted via Fem Art (right) to the diag 17:44:50 50 mcg FENTANYL given in lab by Tisha Sargent, LAWRENCE via Peripheral IV. Ordered by Neal Garay 17:47:28 HR=78 bpm, URSE=012/85 mmhg, SpO2=95.0 %, Resp=20 B/min, Umair=10, Oconnor=2 A BALLOON, 1.5 X 15MM EUPHORA 15MM was inserted over WIRE, ASAHI PROWATER 180CM 180CM via the F em Art 17:48:25 (right). 17:50:05 2 mg MORPHINE given in lab by Tisha Sargent, RN via Peripheral IV. Ordered by Jaz Garay 17:52:25 HR=76 bpm, KPJB=728/82 mmhg, SpO2=95.0 %, Resp=17 B/min, Umair=10, Oconnor=2 17:52:35 Interventional wire has crossed the lesion A BALLOON, 1.5 X 15MM EUPHORA 15MM over a WIRE, ASAHI PROWATER 180CM 180CM in the DIAG Prox was 17:54:55 inflated using a 30 FRANCK INDEFLATOR at 14 franck for 20 sec. 17:55:46 Balloon Removed. A BALLOON, 2.0 X 15MM EUPHORA 15MM was inserted over WIRE, ASAHI PROWATER 180CM 180CM via the F em Art 17:56:18 (right). A BALLOON, 2.0 X 15MM EUPHORA 15MM over a WIRE, ASAHI PROWATER 180CM 180CM in the DIAG Prox was 17:56:52 inflated using a 30 FRANCK INDEFLATOR at 14 franck for 15 sec. A BALLOON, 2.0 X 15MM EUPHORA 15MM over a WIRE, ASAHI PROWATER 180CM 180CM in the DIAG Prox was 17:57:19 inflated using a 30 FRANCK INDEFLATOR at 14 franck for 10 sec. 17:57:28 HR=71 bpm, EGXW=612/83 mmhg, SpO2=96.0 %, Resp=17 B/min, Umair=10, Oconnor=2 17:58:02 Balloon Removed. 17:58:46 200 mcg NTG (IC) given in lab by Neal Garay via Intra-coronary. Ordered by Neal Palencia. 18:02:33 HR=73 bpm, BCDM=175/68 mmhg, SpO2=92 %, Resp=12 B/min, Pain=2, Umair=10, Oconnor=2 A BALLOON, 2.0 X 15MM EUPHORA 15MM was inserted over WIRE, ASAHI PROWATER 180CM 180CM via the F em Art 18:04:55 (right). 18:07:05 20 mL KENGREAL BOLUS given in lab by Tisha Sargent RN via Peripheral IV. Ordered by Neal Larry A BALLOON, 2.0 X 15MM EUPHORA 15MM over a WIRE, ASAHI PROWATER 180CM 180CM in the DIAG Prox was 18:07:09 inflated using a 30 FRANCK INDEFLATOR at 12 franck for 20 sec. 18:07:28 HR=81 bpm, BERL=969/81 mmhg, SpO2=91.0 %, Resp=14 B/min, Umair=10, Oconnor=2 18:08:36 200 mcg NTG (IC) given in lab by Neal Garay via Intra-coronary. Ordered by Neal Palencia 4 mcg/kg/min KENGREAL DRIP given in lab by Tisha Sargent, RN via Peripheral IV. Pump/Drip Andrés w = 163 ml/hr 18:10:40 using NaCl .9 with a concentration of 50 mg in 250 ml. Ordered by Neal Garay. 18:12:31 HR=77 bpm, ENDZ=297/73 mmhg, SpO2=95.0 %, Resp=14 B/min, Umair=10, Oconnor=2 A BALLOON, 2.0 X 6MM NC EUPHORA 6MM was inserted over WIRE, ASAHI PROWATER 180CM 180CM via the Fem Art 18:15:18 (right). A BALLOON, 2.0 X 6MM NC EUPHORA 6MM over a WIRE, ASAHI PROWATER 180CM 180CM in the DIAG Prox wa s 18:17:19 inflated using a 30 FRANCK INDEFLATOR at 12 franck for 20 sec. 18:17:30 HR=75 bpm, PNHA=717/79 mmhg, SpO2=96.0 %, Resp=16 B/min, Umair=10, Oconnor=2 18:17:45 2000 units HEPARIN given in lab by Tisha Sargent, RN via Peripheral IV. Ordered by Neal Garcia A BALLOON, 2.0 X 6MM NC EUPHORA 6MM over a WIRE, ASAHI PROWATER 180CM 180CM in the DIAG Prox wa s 18:18:11 inflated using a 30 FRANCK INDEFLATOR at 12 franck for 20 sec. 18:18:52 Balloon Removed. 18:22:17 HR=79 bpm, CJLA=543/83 mmhg, SpO2=98.0 %, Resp=13 B/min, Umair=10, Oconnor=2 A STENT, 2.0 12MM DULCE 2.0 X 12MM was advanced through a EBU 3.5 Z2 GUIDE CATHETER FR 6 over a WIRE, 18:23:52 ASAHI PROWATER 180CM 180CM. A STENT, 2.0 12MM DULCE 2.0 X 12MM was deployed using a 30 FRANCK INDEFLATOR at 12 atmospheres for 20 seconds 18:26:24 in the DIAG Prox. 18:26:47 Delivery device removed 18:28:01 HR=74 bpm, RBYR=857/82 mmhg, SpO2=94.0 %, Resp=14 B/min, Umair=10, Oconnor=2 18:29:48 Activated Clotting Time Drawn 18:30:49 A WIRE, ASAHI PROWATER 180CM 180CM was inserted via Fem Art (right). to LAD 18:33:02 HR=81 bpm, VPXD=027/91 mmhg, SpO2=96.0 %, Resp=12 B/min, Umair=10, Oconnor=2 18:36:49 ACT (Normal Range 90-180) = 318 18:37:28 50 mcg FENTANYL given in lab by Tisha Sargent RN via Peripheral IV. Ordered by Neal Garay A BALLOON, 2.0 X 15MM EUPHORA 15MM was inserted over WIRE, ASAHI PROWATER 180CM 180CM via the F em Art 18:37:41 (right). 18:37:55 HR=81 bpm, YUZH=913/99 mmhg, SpO2=96.0 %, Resp=21 B/min, Umair=10, Oconnor=2 18:39:23 Whisper Wire removed A BALLOON, 2.0 X 15MM EUPHORA 15MM over a WIRE, ASAHI PROWATER 180CM 180CM in the LAD Prox was inflated 18:39:34 using a 30 FRANCK INDEFLATOR at 16 franck for 15 sec. 18:40:41 Balloon Removed. A BALLOON, 2.25 X 15MM NC EUPHORA 15MM was inserted over WIRE, ASAHI PROWATER 180CM 180CM via t he Fem 18:41:44 Art (right). 18:42:29 HR=81 bpm, XCUT=416/95 mmhg, SpO2=98.0 %, Resp=18 B/min, Umair=10, Oconnor=2 A BALLOON, 2.0 X 12MM NC EUPHORA 12MM was inserted over WIRE, ASAHI PROWATER 180CM 180CM via e Fem 18:43:33 Art (right). 2 mg MORPHINE given in lab by Tisha Sargent, LAWRENCE via Peripheral IV. Ordered by Johnnie Garay for shoulder 18:46:39 pain A BALLOON, 2.25 X 15MM NC EUPHORA 15MM over a WIRE, ASAHI PROWATER 180CM 180CM in the LAD Prox was 18:47:13 inflated using a 30 FRANCK INDEFLATOR at 16 franck for 15 sec. A BALLOON, 2.0 X 12MM NC EUPHORA 12MM over a WIRE, ASAHI PROWATER 180CM 180CM in the LAD Prox w as 18:47:13 inflated using a 30 FRANCK INDEFLATOR at 16 franck for 15 sec. 18:47:30 HR=83 bpm, QDTD=155/92 mmhg, SpO2=98.0 %, Resp=14 B/min, Umair=10, Oconnor=2 18:48:24 Balloons Removed. 18:52:36 HR=77 bpm, NEHX=623/70 mmhg, SpO2=95.0 %, Resp=18 B/min, Umair=10, Oconnor=2 18:55:31 Catheter was removed 18:57:16 An injection in the Fem Art (right) was made through the SHEATH, FR6 TERUMO (10CM) FR 6. 18:57:33 HR=79 bpm, GXHI=212/90 mmhg, SpO2=98.0 %, Resp=9 B/min, Umair=10, Oconnor=2 2 mg MORPHINE given in lab by Tisha Sargent, LAWRENCE via Peripheral IV. Ordered by Johnnie Garay for pain to 18:58:32 shoulder 18:59:00 ANGIOSEAL, FR6 VIP FR 6 placement in the Fem Art (right) 19:00:52 2 mg MORPHINE given in lab by Tisha Sargent, LAWRENCE via Peripheral IV. Ordered by Jaz Garay Assessment: Final Case, HR=81 BPM, Rhythm=SR, NKTC=118/57 mmhg, Edema=Mild, Color=Normal, Skin = Warm, Dry Right Pulses: Geovanny Ped=1, Femoral=1 Left Pulses: Geovanny Ped=1, Femoral=1 19:02:09 Lower Right Extremities: Color=Normal Lower Left Extremities: Color=Normal Neurological: State=Alert, Ox3, INGRAM Respiration: Resp=18 B/min, WkG9=465 %, O2=2 lpm 19:02:38 HR=74 bpm, GPZW=302/57 mmhg, EzI7=991 %, Resp=21 B/min, Umair=10, Oconnor=2 19:03:21 Case End 19:07:19 No case complications noted. 19:07:24 A Left Heart Cath was performed. 19:07:28 Implantable Device card placed in patient's chart. 19:07:32 Bedside Report will be given. 19:07:38 Cine recording checked. 19:08:48 HR=73 bpm, JEQT=587/69 mmhg, UlF8=214 %, Resp=24 B/min, Umair=10, Oconnor=2 19:11:30 180 mg BRILINTA given in lab by Tisha Sargent, RN via Oral. Ordered by Neal Garay Vitals capture started with the following parameters, Patient=Adult, Interval=5 min, Initial Pr umvdud=152 mmHg, 19:12:42 Deflation Rate=5 mmHg, Cuff placed on Right Ankle 19:12:45 Vitals capture stopped. 19:13:[facility] 4 mg ZOFRAN given in lab by Tisha Sargent, RN in Left Antecubital via Central IV. Ordered by Neal Garay End Study - Contrast Media Used In Study Contrast Total Opened (mL) Total Used (mL) Total Wasted (mL) Omnipaque 300 300 0 End Study - Maximum Contrast Load Max Contrast Load (mL) 486.0 End Study - Radiation Exposure Fluoro Time (minutes) 31.2 End Study - Sheaths Sheaths Pulled By Sheath Hold Time (min) Neal Garay End Study - Patient Disposition Complications Transferred To Interventional Outcome No Telemetry Bed successful
[2017-10-31] MEDS ORDERED: SODIUM CHLOR 0.9% 1000 ML INJ 1,000 ML IV SCH (19:49)
[2017-10-31] MEDS ORDERED: MORPHINE SULFATE 4 MG/ML INJ IV PUSH PRN (20:00)
[2017-10-31] MEDS ORDERED: oxyCODONE/ACETAMINOPHEN 5 MG/325 MG TAB PO PRN (20:00)
[2017-10-31] MEDS ORDERED: ACETAMINOPHEN 325 MG TAB PO PRN ×2 (20:00)
[2017-10-31] MEDS ORDERED: CANGRELOR INJ 50,000 MCG in SODIUM CHLOR 0.9% 250 ML INJ 250 ML IV ONE (20:00)
[2017-10-31] MEDS ORDERED: ONDANSETRON HCL 4 MG/2 ML VIAL IV PUSH PRN (20:00)
[2017-10-31 20:33] VITALS: O2SAT 97
[2017-10-31 21:00] VITALS: BP 157/85; PULSE 77; RESP 16; TEMP 98.3; O2SAT 95
[2017-10-31] MEDS ORDERED: ATORVASTATIN 40 MG TAB PO SCH (21:00)
[2017-10-31] MEDS ORDERED: ATORVASTATIN 80 MG TAB PO SCH (21:15)
[2017-10-31] MEDS: oxyCODONE/ACETAMINOPHEN 10 MG/325 MG TAB PO PRN (21:49)
[2017-10-31 23:00] VITALS: PULSE 67
[2017-10-31 23:30] VITALS: BP 137/70; PULSE 82; RESP 16; TEMP 98.3; O2SAT 95
[2017-11-01] VITALS (23 sets, daily range): BP systolic 118–154; BP diastolic 65–84; PULSE 57–74; RESP 16–22; TEMP 97.7–98.7; O2SAT 95–98
--- NOTE | 2017-11-01 00:16 | MH ---
cc: Neal Garay DO DATE OF ADMISSION: 10/31/2017 CHIEF COMPLAINT: Chest pain. HISTORY OF PRESENT ILLNESS: Abhijeet Bautista is a pleasant 57-year-old male who presented to [facility] emergency room due to chest pain. The patient recently underwent 2 stents placed at the [facility] the day before and was released this morning. On the drive home, he told his that he started having some shoulder pain, and so he laid the seat back. The pain was somewhat of an ache. He took a nitroglycerin and then a second one with no real relief. Chest pain started going to the center of his chest and radiating more to his left arm, and he felt like it was a pressure, like someone was sitting on his chest. He told his to go to the nearest emergency room. He was also diaphoretic at the time. Upon arrival to the emergency room, an EKG was done and originally showed no acute ST or T-wave changes, but a repeat EKG done 10 minutes later started to show ST elevations anteriorly with reciprocal changes inferiorly. A STEMI alert was called and there was some confusion about the patient going to [facility], and so the patient was transferred to [facility]. In seeing the patient, he is in acute distress due to chest pain. In discussing his 2 stents placed the day before, he said that it was in a vessel as well as a vessel off to the side, and he is unsure where these were, exactly. He has a total of 8 stents over the years and he is unsure where they are located. PAST MEDICAL HISTORY: 1. Coronary artery disease with a history of myocardial infarction. 2. Hyperlipidemia. 3. Hypertension. 4. Unspecified congestive heart failure. 5. Diabetes mellitus. 6. Chronic back pain. PAST SURGICAL HISTORY: 1. Multiple cardiac interventions throughout the years, including 2 stents placed yesterday (at the [facility] [place]) to unknown coronaries. 2. Cardiac catheterization (07/27/2015): Proximal LAD 95% just proximal to a previous stent which was intervened on with a bare metal stent (3.5 x 12). 3. Cardiac catheterization (01/12/2015): PCI of the RCA with a bare metal stent (3.5 x 18). 4. Cardiac catheterization (05/20/2006): PCI of the mid LAD (with a Cypher 3 x 23) with balloon angioplasty of the diagonal bifurcation. 5. Hemorrhoidectomy. 6. Bilateral knee arthroscopies. ALLERGIES: NO KNOWN DRUG ALLERGIES. MEDICATIONS: 1. Flexeril 10 mg t.i.d. 2. Plavix 75 mg daily. 3. Lipitor 40 mg every night. 4. Metoprolol tartrate 25 mg daily. 5. Norvasc 10 mg daily. 6. Losartan 100 mg daily. 7. Aspirin 81 mg daily. 8. Chlorthalidone 25 mg daily. FAMILY HISTORY: He does have a history of coronary artery disease in the family. Denies sudden cardiac within the family. SOCIAL HISTORY: The patient previously smoked but quit around 3 years ago. He occasionally drinks alcohol. Denies drug abuse. REVIEW OF SYSTEMS: Fourteen systems were reviewed including osteopathic. Pertinent positives and negatives above, otherwise negative. PHYSICAL EXAMINATION: VITAL SIGNS: Temperature 98.0, heart rate 73, blood pressure 126/76, respirations 22, pulse oximetry 100% on 2 liters. GENERAL: The patient appears in moderate distress due to chest pain. Alert, awake and oriented x3. He is mildly diaphoretic. HEENT: Extraocular muscles intact. Mucous membranes moist. NECK: Supple. No JVD at 45 degrees. No carotid bruits heard bilaterally. Carotid upstroke is brisk in nature. HEART: Regular rate and rhythm. Positive first and second heart sounds with no noted murmurs, gallops or rubs. LUNGS: Decreased breath sounds bilaterally, but no overt wheezes, rales or rhonchi. ABDOMEN: Soft, nontender, nondistended. No organomegaly noted. EXTREMITIES: Shows no clubbing, cyanosis or edema. Femoral and distal pulses are intact bilaterally. NEUROLOGIC: No focal deficits. SKIN: Warm, dry and intact. OSTEOPATHIC: Mild lordosis, no kyphoscoliosis or paraspinal tender points. LABORATORY DATA: Hemoglobin 12.3, hematocrit 37.5, platelets 317. Potassium 3.1, BUN 24, creatinine 1.4. Troponin 2.22. BNP 29. Electrocardiogram (10/31/2017 at 1546): Sinus bradycardia, ST elevations anteroseptally with reciprocal changes inferiorly consistent with an acute anterior septal myocardial infarction. IMPRESSIONS:
--- NOTE | 2017-11-01 01:50 | MA ---
cc: Neal Garay DO DATE: 10/31/2017 PROCEDURE: Left heart catheterization, coronary angiogram, complex case, moderate sedation, 120 minutes, bifurcation stenting of LAD diagonal with an Corolla drug-eluting stent (2.25 x 26) to the LAD, Jah drug-eluting stent (2 x 12) to the diagonal, Angio-Seal femoral closure. PREPROCEDURE DIAGNOSIS: Acute anterior ST elevation myocardial infarction. POST PROCEDURE DIAGNOSIS: Acute anterior ST elevation myocardial infarction with stent thrombosis, status post bifurcation stenting of the left anterior descending/diagonal with an Corolla drug-eluting stent (2.25 x 26) to the left anterior descending and Corolla drug-eluting stent (2 x 12) to the diagonal. MEDICATIONS: Versed 1.5 mg, fentanyl 225 mcg, heparin 13,500 units, Brilinta 180 mg, morphine 6, Zofran 4 mg, cangrelor bolus and drip. CONTRAST USED: 300 mL FLUOROSCOPY: 31.2 minutes. MODERATE SEDATION: 120 minutes. FRAILTY SCORE: Four. ESTIMATED BLOOD LOSS: 50 mL PROCEDURAL SUMMARY: Abhijeet Bautista is a pleasant 57-year-old male who originally presented to [facility] Emergency Room due to chest pain. He was found to have ST elevations and originally was supposed to be sent to [place] for intervention, but there was some confusion between the ER physician and capacitor repairer and eventually was sent to [facility]. Risks, benefits and alternatives were explained to him and he consented as such. He was brought to the lab and prepped in the usual sterile fashion. The right femoral artery was accessed using a modified Seldinger technique and placement of a 6-Welsh sheath. This was easily aspirated and flushed. A JR4 was advanced over a J-wire to the ascending aorta and across the aortic valve for measurement of left ventricular pressure. This was pulled back across the aortic valve, showing no significant gradient of aortic stenosis. JR4 was used for selective angiography of the right coronary artery system. This was exchanged out for an EBU 3.5 guide, which was used for selective angiography of the left coronary artery system. As there was stent occlusion, heparin was given as an anticoagulant. A BMW wire was attempted to be advanced, but was unable to pass the occlusion. A compliant balloon (2 x 15) was then loaded on the wire for further support, but still was unable to cross the occlusion. The wire and balloon were removed. A Whisper moderate support wire was then used to cross through the lesion. A compliant balloon (2 x 15) was then used to dilate the lesion. At this time, evaluation of this shows significant disease through a previous stent, as well as possible thrombus versus disease at the ostial portion of the diagonal. An Jah drug-eluting stent (2.25 x 26) was placed over the lesion in a previous stent and inflated. This was further postdilated with a noncompliant balloon (2.25 x 15). As there was concern for disease of the ostial diagonal and the patient continued to have significant chest pain as well as EKG changes in the high lateral leads, a Prowater wire was advanced through his previous stent as well as the new stent and into the diagonal. A compliant balloon (1.5 x 15) was then used to predilate the stent struts as well as the ostium of the diagonal. This was then repeated with a compliant balloon (2 x 15). At this time, due to possible thrombus, a drip was started. As there appeared to be significant recoil at the ostium of the diagonal, a noncompliant balloon (2 x 6) was further used to dilate the stent struts as well as the ostial diagonal. As there continued to be significant disease at the ostium of the diagonal, I felt that this needed to undergo intervention with stenting. An Jah drug-eluting stent (2 x 12) was then placed over the diagonal lesion and back into the LAD and inflated, was then placed over the ostial diagonal lesion with the proximal portion in the LAD and inflated. As I did not want to lose wire position in the LAD, a new Prowater wire was advanced through the struts of the diagonal and into the distal LAD. Previous Whisper wire was removed. A compliant balloon (2 x 15) was used to predilate the struts of the diagonal stent within the LAD. A noncompliant balloon (2.25 x 15) was then placed in the stent in the LAD, as well as a noncompliant balloon (2 x 12) was placed in the diagonal. Kissing balloon technique was used to post-dilate both stents. Wires were removed and final angiogram shows well opposed stents with no perforations or dissections. At this time, the patient was without chest pain, with PATRIC 3 flow down both vessels. The guide was removed. An Angio-Seal was used for the femoral arteriotomy site. The patient left the labeling associate cardiovascularly stable. He was loaded with 180 mg of Brilinta and cangrelor drip running. FINDINGS: Left main, 30% ostial stenosis. It bifurcates into LAD and circumflex. LAD, multiple stents noted throughout the proximal to mid portion, with 100% occlusion in the mid portion at the takeoff of the major diagonal. Major diagonal has 90% ostial stenosis and is overall a large branch with multiple branches off of it. There is a previous stent noted in the diagonal, which is patent. Left circumflex, normal-sized vessel, with mild luminal irregularities throughout the proximal portion. Distally it gives off 2 large obtuse marginals, which are overall tortuous, but no significant disease. RCA, normal-sized vessel with mild luminal irregularities. Stent in the mid portion is patent. Distally it supplies a PDA with no significant disease. LVEDP 18. IMPRESSION: 1. Acute anterior ST elevation myocardial infarction, with stent thrombosis, as well as significant diagonal disease. 2. Complex bifurcation stenting of the left anterior descending and diagonal with an Corolla drug-eluting stent (2.25 x 26) to the left anterior descending, Corolla drug-eluting stent (2 x 12) to the diagonal. 3. Extensive history of coronary artery disease. RECOMMENDATIONS: 1. Mr. Bautista appears to have had acute stent thrombosis and it is unknown at this time if this is a previous stent from a number of years ago or a recent stent placed yesterday. In discussing this with him, he states that he had stenting of a main vessel as well as a side branch and this is most likely stenting of his LAD and diagonal while at the [facility] in [place]. Most likely this represents acute stent thrombosis and this may be due to the technical portion of his stenting previously versus Plavix nonresponder. 2. Because of this, he will be changed to Brilinta therapy. He will discuss with the [facility] about getting Brilinta and overall I feel that if placed on Plavix, he is at a high risk of stent thrombosis once again. 3. I did discuss with him the extent of his coronary artery disease and he states that previously he was told that any further disease, he may need to be considered for coronary artery bypass grafting. 4. He will be placed on aspirin and Brilinta therapy, as well as continuing his beta ana and statin therapy. 5. His ARB will be held due to his acute kidney injury, as well as a large contrast status. 6. He will have cangrelor ran for 2 hours post-procedure. 7. We will check a 2D echo to look at his overall left ventricular function, cardiac structure and possible valvulopathies. 8. We will plan for him to be in the hospital 2-3 days due to his acute STEMI. 9. He will be gently hydrated and we will have to watch his creatinine, as he did have acute kidney injury preprocedure, as well as a large contrast dose due to the complexity of the disease. 10. balloon time was not achieved due to concern with transferring the patient as he was supposed to go to [place], but there was some confusion with this and eventually transferred to [facility], as well as difficulty with wiring the lesion and overall complexity of his coronary artery disease. Thank you for allowing me to see Abhijeet Bautista. If there are any questions, please do not hesitate to call. DO NISHA Lemus/ERROL , 12:53 AM , 01:49 AM
[2017-11-01] MEDS ORDERED: IOHEXOL 350 MG/ML 100 ML BTL (for Cath Lab) OTHER ONE (07:14)
[2017-11-01] MEDS: ASPIRIN 81 MG CHEW TAB CHEW SCH (08:44)
[2017-11-01] MEDS: TICAGRELOR 90 MG TAB PO SCH ×2 (08:44→21:38)
[2017-11-01] MEDS: METOPROLOL TARTRATE 25 MG TAB PO SCH ×2 (08:45→21:37)
[2017-11-01] MEDS: oxyCODONE/ACETAMINOPHEN 10 MG/325 MG TAB PO PRN (08:46)
[2017-11-01] MEDS: CYCLOBENZAPRINE HCL 10 MG TAB PO SCH ×3 (08:46→17:09)
[2017-11-01] MEDS ORDERED: METOPROLOL TARTRATE 25 MG TAB PO SCH (09:00)
--- NOTE | 2017-11-01 09:14 | EKG ---
Date Performed: 11/01/2017 Time Performed: 03:20:36 PTAGE: 57 years EKG: Sinus rhythm Prolonged QT interval Possible septal infarct - age undetermined Inferior/lateral ST-T changes may b e due to myocardial ischemia Abnormal ECG PREVIOUS TRACING : 02/23/2017 22.24 DOCTOR: Neville Marin Interpretating Date/Time 11/01/2017 09:11:40
[2017-11-01 13:01] LABS: AUTOMATED NEUTROPHIL # 7.2 TH/MM3 (1.8-7.7); BASOPHIL # 0.1 TH/MM3 (0-0.2); BASOPHIL % 0.6 % (0.0-2.0); EOSINOPHIL # 0.1 TH/MM3 (0-0.4); EOSINOPHIL % 0.7 % (0.0-4.0); HEMATOCRIT 32.9 % (39.0-51.0); HEMOGLOBIN 10.9 GM/DL (13.0-17.0); LYMPHOCYTE # 1.8 TH/MM3 (1.0-4.8); MEAN CELL VOLUME 75.7 FL (80.0-100.0); MEAN CORPUSCULAR HGB CONC 33.1 % (32.0-36.0); MEAN PLATELET VOLUME 9.1 FL (7.0-11.0); MONO % 8.4 % (0.0-8.0); MONOCYTE # 0.8 TH/MM3 (0-0.9); NEUT % 72.3 % (16.0-70.0); PLATELET COUNT 221 TH/MM3 (150-450); RED BLOOD COUNT 4.35 MIL/MM3 (4.50-5.90); RED CELL DISTRIBUTION WIDTH 17.3 % (11.6-17.2); WHITE BLOOD COUNT 9.9 TH/MM3 (4.0-11.0)
[2017-11-01 13:35] LABS: BICARBONATE 28.3 MEQ/L (21.0-32.0); CALCIUM 8.7 MG/DL (8.5-10.1); CREATININE 1.11 MG/DL (0.60-1.30)
[2017-11-01] MEDS ORDERED: POTASSIUM CHLORIDE 20 MEQ CONTROLLED RELEASE TAB PO ONE (15:15)
--- NOTE | 2017-11-01 16:13 | PD.CARD.PN ---
Subjective Subjective Remarks No events overnight This morning did have some pain in his back, relieved with Flexeril Objective Medications Current Medications Medications (Trade) Dose Ordered Sig/Lloyd Route Start Time Stop Time Status Last Admin (Norvasc) 10 mg DAILY PO 11/01/17 09:00 11/01/17 08:45 (Aspirin Chew) 81 mg DAILY CHEW 11/01/17 09:00 11/01/17 08:44 (Flexeril) 10 mg TID PO 11/01/17 09:00 11/01/17 12:38 (Tylenol) 325 mg Q4H PRN PO 10/31/17 20:00 (Percocet 5-325 Mg) 1 tab Q4H PRN PO 10/31/17 20:00 (Percocet 10-325 Mg) 1 tab Q4H PRN PO 10/31/17 20:00 11/01/17 08:46 (Morphine Inj) 2 mg Q30M PRN IV PUSH 10/31/17 20:00 (Brilinta) 90 mg BID PO 11/01/17 09:00 11/01/17 08:44 (Zofran Inj) 4 mg Q4H PRN IV PUSH 10/31/17 20:00 11/01/17 08:45 (Lipitor) 80 mg HS PO 10/31/17 21:15 (Lopressor) 25 mg BID PO 11/01/17 09:00 11/01/17 08:45 Vital Signs / I&O Vital Signs Date Time Temp Pulse Resp B/P (MAP) Pulse Ox O2 Delivery O2 Flow Rate FiO2 11/01/17 15:00 97.7 62 20 123/72 (89) 98 11/01/17 15:00 61 11/01/17 14:00 58 11/01/17 13:00 64 11/01/17 12:00 62 11/01/17 11:00 63 11/01/17 11:00 98.0 66 20 128/84 (99) 98 11/01/17 10:00 68 11/01/17 09:00 71 11/01/17 08:00 70 11/01/17 07:15 63 11/01/17 07:15 98.1 65 20 147/75 (99) 95 11/01/17 05:00 59 11/01/17 04:00 57 11/01/17 04:00 98.6 67 16 154/76 (102) 98 11/01/17 03:00 67 11/01/17 02:00 64 11/01/17 01:00 74 11/01/17 00:00 68 10/31/17 23:30 98.3 82 16 137/70 (92) 95 10/31/17 23:00 67 10/31/17 21:00 98.3 77 16 157/85 (109) 95 10/31/17 20:33 97 10/31/17 17:37 70 136/79 I/O 10/31/17 10/31/17 10/31/17 11/01/17 11/01/17 11/01/17 07:00 15:00 23:00 07:00 15:00 23:00 Intake Total 760 ml 680 ml Output Total 1225 ml Balance 760 ml -545 ml Intake Oral 680 ml IV Total 760 ml Output Urine Total 1225 ml Physical Exam GENERAL: NAD, AAOx3 SKIN: Warm and dry. HEAD: Atraumatic. Normocephalic. EYES: Pupils equal and round. No scleral icterus. No injection or drainage. ENT: No nasal bleeding or discharge. Mucous membranes pink and moist. NECK: Trachea midline. No JVD. CARDIOVASCULAR: Regular rate and rhythm. RESPIRATORY: No accessory muscle use. Decreased breath sounds bilaterally GASTROINTESTINAL: Abdomen soft, non-tender, nondistended. Hepatic and splenic margins not palpable. MUSCULOSKELETAL: Extremities without clubbing, cyanosis, or edema. No obvious deformities. Right femoral no hematoma, distal pulses intact NEUROLOGICAL: Awake and alert. No obvious cranial nerve deficits. Motor grossly within normal limits. Five out of 5 muscle strength in the arms and legs. Normal speech. PSYCHIATRIC: Appropriate mood and affect; insight and judgment normal. Laboratory Laboratory Tests Test 11/01/17 12:12 White Blood Count 9.9 TH/MM3 Red Blood Count 4.35 MIL/MM3 Hemoglobin 10.9 GM/DL Hematocrit 32.9 % Mean Corpuscular Volume 75.7 FL Mean Corpuscular Hemoglobin 25.0 PG Mean Corpuscular Hemoglobin Concent 33.1 % Red Cell Distribution Width 17.3 % Platelet Count 221 TH/MM3 Mean Platelet Volume 9.1 FL Neutrophils (%) (Auto) 72.3 % Lymphocytes (%) (Auto) 18.0 % Monocytes (%) (Auto) 8.4 % Eosinophils (%) (Auto) 0.7 % Basophils (%) (Auto) 0.6 % Neutrophils # (Auto) 7.2 TH/MM3 Lymphocytes # (Auto) 1.8 TH/MM3 Monocytes # (Auto) 0.8 TH/MM3 Eosinophils # (Auto) 0.1 TH/MM3 Basophils # (Auto) 0.1 TH/MM3 CBC Comment DIFF FINAL Differential Comment Blood Urea Nitrogen 19 MG/DL Creatinine 1.11 MG/DL Random Glucose 95 MG/DL Calcium Level 8.7 MG/DL Sodium Level 137 MEQ/L Potassium Level 3.2 MEQ/L Chloride Level 102 MEQ/L Carbon Dioxide Level 28.3 MEQ/L Anion Gap 7 MEQ/L Estimat Glomerular Filtration Rate 68 ML/MIN Assessment and Plan Problem List: (1) STEMI (ST elevation myocardial infarction) ICD Codes: I21.3 - ST elevation (STEMI) myocardial infarction of unspecified site (2) CAD (coronary artery disease) ICD Codes: I25.10 - CAD (coronary artery disease) Status: Acute (3) Unstable angina ICD Codes: I20.0 - Unstable angina Status: Acute (4) PVD (peripheral vascular disease) ICD Codes: I73.9 - PVD (peripheral vascular disease) Status: Acute (5) HTN (hypertension) ICD Codes: I10 - Essential (primary) hypertension Status: Chronic Assessment and Plan 1) Acute anterior STEMI s/p bifurcation stenting of the LAD/Diag Concern for acute stent thrombosis (stent believed to be placed the day before) 2) Con't ASA/Brilinta Brilinta for stent thrombosis which may be due to technical issues with stenting vs. Plavix non-responder 3) Con't Statin/BB ARB on hold, but will restart 4) 2D echo pending 5) Possible discharge tomorrow Neal Garay DO November 01, 2017 16:13
--- NOTE | 2017-11-01 19:26 | HHI.PR ---
Subjective Remarks Follow up chest pain/STEMI/ status post cardiac cath Patient is in bed appears in nad. No n/v/d/c. He denies any chest pain, no sob. No fever or chills. Objective Vitals Vital Signs Date Time Temp Pulse Resp B/P (MAP) Pulse Ox O2 Delivery O2 Flow Rate FiO2 11/01/17 18:00 70 11/01/17 17:00 70 11/01/17 16:00 61 11/01/17 15:00 97.7 62 20 123/72 (89) 98 11/01/17 15:00 61 11/01/17 14:00 58 11/01/17 13:00 64 11/01/17 12:00 62 11/01/17 11:00 63 11/01/17 11:00 98.0 66 20 128/84 (99) 98 11/01/17 10:00 68 11/01/17 09:00 71 11/01/17 08:00 70 11/01/17 07:15 63 11/01/17 07:15 98.1 65 20 147/75 (99) 95 11/01/17 05:00 59 11/01/17 04:00 57 11/01/17 04:00 98.6 67 16 154/76 (102) 98 11/01/17 03:00 67 11/01/17 02:00 64 11/01/17 01:00 74 11/01/17 00:00 68 10/31/17 23:30 98.3 82 16 137/70 (92) 95 10/31/17 23:00 67 10/31/17 21:00 98.3 77 16 157/85 (109) 95 10/31/17 20:33 97 I/O 10/31/17 10/31/17 10/31/17 11/01/17 11/01/17 11/01/17 07:00 15:00 23:00 07:00 15:00 23:00 Intake Total 760 ml 680 ml 960 ml Output Total 1225 ml 700 ml Balance 760 ml -545 ml 260 ml Intake Oral 680 ml 960 ml IV Total 760 ml Output Urine Total 1225 ml 700 ml # Voids 2 # Bowel Movements 0 Result Diagram: 11/01/17 1212 11/01/17 1212 Objective Remarks GENERAL: Patient in nad. CARDIOVASCULAR: Regular rate and rhythm. RESPIRATORY: No accessory muscle use. Clear to auscultation. Breath sounds equal bilaterally. GASTROINTESTINAL: Abdomen soft, non-tender, nondistended. Hepatic and splenic margins not palpable. MUSCULOSKELETAL: Extremities without clubbing, cyanosis, or edema. No obvious deformities. NEUROLOGICAL: Awake and alert. No obvious cranial nerve deficits. Motor grossly within normal limits. Five out of 5 muscle strength in the arms and legs. Normal speech. PSYCHIATRIC: Appropriate mood and affect; insight and judgment normal. A/P Assessment and Plan Pleasant 57-year-old male with: Acute anterior ST elevation myocardial infarction, with acute stent thrombosis, significant diagonal disease. Complex bifurcation stenting of the left anterior descending and diagonal with an Horner drug-eluting stent (2.25 x 26) to the left anterior descending, Jah drug-eluting stent (2 x 12) to the diagonal. Extensive history of coronary artery disease. JULIANNA Hypokalemia. Replace continue to monitor. Cardiology following Dr King appreciate recommendations Started on Brilinta and ASA, continue beta ana and statin therapy, ARBs held due to his acute kidney injury, patient also s/p contrast status. 2D ECHO with EF 30% Gentle IVF, monitor kidney function, avoid nephrotoxins DVT ppx scd/teds Discussed ith the patient, nurse, Dr King cardiology DC plan: DC in 1-2 days when cleared by Kelly Hall MD November 01, 2017 19:26
--- NOTE | 2017-11-01 19:49 | ECHRPT ---
Indication: STEMI CONCLUSIONS Normal left ventricular size. Mild concentric left ventricular hypertrophy. The left ventricular systolic function is moderately to severely reduced with an estimated ejection fraction of 30%. . The left atrial size is mildly dilated. The right atrial size is mildly dilated. There is trace tricuspid valve regurgitation. BP: 147 / 75 HR: 65 Rhythm: Sinus MEASUREMENTS (Male / Female) Normal Values Technical Quality:Technically difficult study 2D ECHO LV Diastolic Diameter PLAX 5.7 cm 4.2 - 5.9 / 3.9 - 5.3 cm LV Systolic Diameter PLAX 5.1 cm IVS Diastolic Thickness 1.2 cm 0.6 - 1.0 / 0.6 - 0.9 cm LVPW Diastolic Thickness 1.2 cm 0.6 - 1.0 / 0.6 - 0.9 cm LV Relative Wall Thickness 0.4 RV Internal Dim ED PLAX 2.5 cm LVOT Diameter 2.3 cm Aortic Root Diameter 3.2 cm LA Systolic Diameter LX 2.9 cm 3.0 - 4.0 / 2.7 - 3.8 cm M-MODE AV Cusp Separation MM 2.3 cm DOPPLER AV Peak Velocity 156.0 cm/s AV Peak Gradient 9.7 mmHg AV Mean Gradient 6.0 mmHg AV Velocity Time Integral 28.9 cm LVOT Peak Velocity 121.0 cm/s LVOT Peak Gradient 5.9 mmHg LVOT Velocity Time Integral 20.2 cm AV Area Cont Eq vti 2.9 cm AV Area Cont Eq pk 3.2 cm Mitral E Point Velocity 82.4 cm/s Mitral A Point Velocity 90.8 cm/s Mitral E to A Ratio 0.9 LV E' Lateral Velocity 5.8 cm/s Mitral E to LV E' Lateral Ratio 14.3 LV E' Septal Velocity 6.6 cm/s Mitral E to LV E' Septal Ratio 12.4 PV Peak Velocity 74.4 cm/s PV Peak Gradient 2.2 mmHg FINDINGS LEFT VENTRICLE Normal left ventricular size. Mild concentric left ventricular hypertrophy. The left ventricular systolic function is moderately to severely reduced with an estimated ejection fraction of 30%. RIGHT VENTRICLE Normal right ventricular size and systolic function. LEFT ATRIUM The left atrial size is mildly dilated. RIGHT ATRIUM The right atrial size is mildly dilated. ATRIAL SEPTUM The interatrial septum not well visualized. AORTA The aortic root and proximal ascending aorta are normal in size on limited imaging. MITRAL VALVE Structurally normal mitral valve. No mitral valve stenosis or regurgitation. AORTIC VALVE Trileaflet aortic valve. No aortic valve stenosis or regurgitation. TRICUSPID VALVE There is trace tricuspid valve regurgitation. PULMONARY VALVE Trivial pulmonary valve regurgitation. VESSELS The inferior vena cava is normal in size. PERICARDIUM No pericardial effusion. Larry Salinas MD, FACC (Electronically Signed) Final Date:01 Nov 2017 19:47
[2017-11-02] VITALS (8 sets, daily range): BP systolic 129–132; BP diastolic 69–83; PULSE 61–71; RESP 18–20; TEMP 97.7–98.6; O2SAT 96
[2017-11-02 05:03] LABS: AUTOMATED NEUTROPHIL # 5.7 TH/MM3 (1.8-7.7); BASOPHIL # 0.1 TH/MM3 (0-0.2); BASOPHIL % 0.8 % (0.0-2.0); EOSINOPHIL # 0.2 TH/MM3 (0-0.4); EOSINOPHIL % 2.3 % (0.0-4.0); HEMATOCRIT 33.9 % (39.0-51.0); HEMOGLOBIN 11.2 GM/DL (13.0-17.0); LYMPH % 24.5 % (9.0-44.0); LYMPHOCYTE # 2.1 TH/MM3 (1.0-4.8); MEAN CORPUSCULAR HEMOGLOBIN 25.2 PG (27.0-34.0); MEAN CORPUSCULAR HGB CONC 33.2 % (32.0-36.0); MEAN PLATELET VOLUME 9.2 FL (7.0-11.0); MONOCYTE # 0.6 TH/MM3 (0-0.9); NEUT % 65.4 % (16.0-70.0); PLATELET COUNT 208 TH/MM3 (150-450); RED BLOOD COUNT 4.46 MIL/MM3 (4.50-5.90); RED CELL DISTRIBUTION WIDTH 17.3 % (11.6-17.2); WHITE BLOOD COUNT 8.7 TH/MM3 (4.0-11.0)
[2017-11-02 05:15] LABS: BICARBONATE 28.3 MEQ/L (21.0-32.0); CALCIUM 9.5 MG/DL (8.5-10.1); CREATININE 1.15 MG/DL (0.60-1.30)
[2017-11-02] MEDS: CYCLOBENZAPRINE HCL 10 MG TAB PO SCH (08:31)
[2017-11-02] MEDS: ASPIRIN 81 MG CHEW TAB CHEW SCH (08:32)
[2017-11-02] MEDS: METOPROLOL TARTRATE 25 MG TAB PO SCH (08:32)
[2017-11-02] MEDS: TICAGRELOR 90 MG TAB PO SCH (08:32)
--- NOTE | 2017-11-02 09:17 | HHI.PR ---
Subjective Remarks Follow up chest pain/STEMI/ status post cardiac cath. No chest pain at this time. Feels better. No lightheadedness, palpitations, diaphoresis or nausea. Objective Vitals Vital Signs Date Time Temp Pulse Resp B/P (MAP) Pulse Ox O2 Delivery O2 Flow Rate FiO2 11/02/17 06:00 62 11/02/17 05:00 71 11/02/17 04:00 62 11/02/17 03:00 61 11/02/17 03:00 97.7 61 20 132/83 (99) 96 11/02/17 02:00 64 11/02/17 01:00 63 11/02/17 00:00 64 11/01/17 23:00 98.7 64 20 118/65 (82) 97 11/01/17 23:00 64 11/01/17 22:00 71 11/01/17 21:00 70 11/01/17 20:00 71 11/01/17 19:00 74 11/01/17 19:00 98.4 74 22 120/71 (87) 97 11/01/17 18:00 70 11/01/17 17:00 70 11/01/17 16:00 61 11/01/17 15:00 97.7 62 20 123/72 (89) 98 11/01/17 15:00 61 11/01/17 14:00 58 11/01/17 13:00 64 11/01/17 12:00 62 11/01/17 11:00 63 11/01/17 11:00 98.0 66 20 128/84 (99) 98 11/01/17 10:00 68 I/O 11/01/17 11/01/17 11/01/17 11/02/17 11/02/17 11/02/17 07:00 15:00 23:00 07:00 15:00 23:00 Intake Total 680 ml 960 ml 240 ml Output Total 1225 ml 700 ml 500 ml Balance -545 ml 260 ml -260 ml Intake Oral 680 ml 960 ml 240 ml Output Urine Total 1225 ml 700 ml 500 ml # Voids 2 # Bowel Movements 0 Result Diagram: 11/02/17 0348 11/02/17 0348 Objective Remarks GENERAL: Patient in nad. CARDIOVASCULAR: Regular rate and rhythm. RESPIRATORY: No accessory muscle use. Clear to auscultation. Breath sounds equal bilaterally. GASTROINTESTINAL: Abdomen soft, non-tender, nondistended. Hepatic and splenic margins not palpable. MUSCULOSKELETAL: Extremities without clubbing, cyanosis, or edema. No obvious deformities. NEUROLOGICAL: Awake and alert. No obvious cranial nerve deficits. Motor grossly within normal limits. Five out of 5 muscle strength in the arms and legs. Normal speech. PSYCHIATRIC: Appropriate mood and affect; insight and judgment normal. A/P Assessment and Plan Pleasant 57-year-old male with: Acute anterior ST elevation myocardial infarction, with acute stent thrombosis, significant diagonal disease. Complex bifurcation stenting of the left anterior descending and diagonal with an Jah drug-eluting stent (2.25 x 26) to the left anterior descending, [place] drug-eluting stent (2 x 12) to the diagonal. Extensive history of coronary artery disease. JULIANNA Hypokalemia. Replace continue to monitor. Cardiology following Dr King appreciate recommendations Started on Brilinta and ASA, continue beta ana and statin therapy, ARBs held due to his acute kidney injury, patient also s/p contrast status. Restart ARBs 2D ECHO with EF 30% Gentle IVF, monitor kidney function, avoid nephrotoxins DVT ppx scd/teds Discussed ith the patient, nurse, Dr King cardiology DC plan: DC in 1-2 days when cleared by Kelly Hall MD November 02, 2017 09:17
--- NOTE | 2017-11-02 10:01 | HHI.DS ---
Discharge Summary Admission Date October 31, 2017 at 19:53 Admitting Diagnosis CBC/BMP: 11/02/17 0348 11/02/17 0348 Significant Findings Laboratory Tests Test 11/01/17 12:12 11/02/17 03:48 Red Blood Count 4.35 MIL/MM3 (4.50-5.90) 4.46 MIL/MM3 (4.50-5.90) Hemoglobin 10.9 GM/DL (13.0-17.0) 11.2 GM/DL (13.0-17.0) Hematocrit 32.9 % (39.0-51.0) 33.9 % (39.0-51.0) Mean Corpuscular Volume 75.7 FL (80.0-100.0) 76.0 FL (80.0-100.0) Mean Corpuscular Hemoglobin 25.0 PG (27.0-34.0) 25.2 PG (27.0-34.0) Red Cell Distribution Width 17.3 % (11.6-17.2) 17.3 % (11.6-17.2) Neutrophils (%) (Auto) 72.3 % (16.0-70.0) Monocytes (%) (Auto) 8.4 % (0.0-8.0) Blood Urea Nitrogen 19 MG/DL (7-18) Potassium Level 3.2 MEQ/L (3.5-5.1) Estimat Glomerular Filtration Rate 68 ML/MIN (>89) 65 ML/MIN (>89) Random Glucose 107 MG/DL (74-106) PE at Discharge GENERAL: Patient in nad. CARDIOVASCULAR: Regular rate and rhythm. RESPIRATORY: No accessory muscle use. Clear to auscultation. Breath sounds equal bilaterally. GASTROINTESTINAL: Abdomen soft, non-tender, nondistended. Hepatic and splenic margins not palpable. MUSCULOSKELETAL: Extremities without clubbing, cyanosis, or edema. No obvious deformities. NEUROLOGICAL: Awake and alert. No obvious cranial nerve deficits. Motor grossly within normal limits. Five out of 5 muscle strength in the arms and legs. Normal speech. PSYCHIATRIC: Appropriate mood and affect; insight and judgment normal. Pt Condition on Discharge: Stable Discharge Disposition: Discharge Home Discharge Instructions DIET: Follow Instructions for: Heart Healthy Diet Activities you can perform: Regular-No Restrictions Kelly Terrell MD November 02, 2017 10:01
[2017-11-02] MEDS ORDERED: ATOR80TA45 PO (10:05)
[2017-11-02] MEDS ORDERED: BRIL90TA PO (10:05)
--- NOTE | 2017-11-02 17:53 | PD.CARD.PN ---
Subjective Subjective Remarks Patient was seen earlier today, late entry note No events overnight Up and ambulating Objective Vital Signs / I&O Vital Signs Date Time Temp Pulse Resp B/P (MAP) Pulse Ox O2 Delivery O2 Flow Rate FiO2 11/02/17 08:00 98.6 68 18 129/69 (89) 96 11/02/17 08:00 68 11/02/17 06:00 62 11/02/17 05:00 71 11/02/17 04:00 62 11/02/17 03:00 61 11/02/17 03:00 97.7 61 20 132/83 (99) 96 11/02/17 02:00 64 11/02/17 01:00 63 11/02/17 00:00 64 11/01/17 23:00 98.7 64 20 118/65 (82) 97 11/01/17 23:00 64 11/01/17 22:00 71 11/01/17 21:00 70 11/01/17 20:00 71 11/01/17 19:00 74 11/01/17 19:00 98.4 74 22 120/71 (87) 97 11/01/17 18:00 70 I/O 11/01/17 11/01/17 11/01/17 11/02/17 11/02/17 11/02/17 06:59 14:59 22:59 06:59 14:59 22:59 Intake Total 680 ml 960 ml 240 ml Output Total 1225 ml 700 ml 500 ml Balance -545 ml 260 ml -260 ml Intake Oral 680 ml 960 ml 240 ml Output Urine Total 1225 ml 700 ml 500 ml # Voids 2 # Bowel Movements 0 Physical Exam GENERAL: NAD, AAOx3 SKIN: Warm and dry. HEAD: Atraumatic. Normocephalic. EYES: Pupils equal and round. No scleral icterus. No injection or drainage. ENT: No nasal bleeding or discharge. Mucous membranes pink and moist. NECK: Trachea midline. No JVD. CARDIOVASCULAR: Regular rate and rhythm. RESPIRATORY: No accessory muscle use. Decreased breath sounds bilaterally GASTROINTESTINAL: Abdomen soft, non-tender, nondistended. Hepatic and splenic margins not palpable. MUSCULOSKELETAL: Extremities without clubbing, cyanosis, or edema. No obvious deformities. Right femoral no hematoma, distal pulses intact NEUROLOGICAL: Awake and alert. No obvious cranial nerve deficits. Motor grossly within normal limits. Five out of 5 muscle strength in the arms and legs. Normal speech. PSYCHIATRIC: Appropriate mood and affect; insight and judgment normal. Laboratory Laboratory Tests Test 11/02/17 03:48 White Blood Count 8.7 TH/MM3 Red Blood Count 4.46 MIL/MM3 Hemoglobin 11.2 GM/DL Hematocrit 33.9 % Mean Corpuscular Volume 76.0 FL Mean Corpuscular Hemoglobin 25.2 PG Mean Corpuscular Hemoglobin Concent 33.2 % Red Cell Distribution Width 17.3 % Platelet Count 208 TH/MM3 Mean Platelet Volume 9.2 FL Neutrophils (%) (Auto) 65.4 % Lymphocytes (%) (Auto) 24.5 % Monocytes (%) (Auto) 7.0 % Eosinophils (%) (Auto) 2.3 % Basophils (%) (Auto) 0.8 % Neutrophils # (Auto) 5.7 TH/MM3 Lymphocytes # (Auto) 2.1 TH/MM3 Monocytes # (Auto) 0.6 TH/MM3 Eosinophils # (Auto) 0.2 TH/MM3 Basophils # (Auto) 0.1 TH/MM3 CBC Comment DIFF FINAL Differential Comment Blood Urea Nitrogen 14 MG/DL Creatinine 1.15 MG/DL Random Glucose 107 MG/DL Calcium Level 9.5 MG/DL Sodium Level 139 MEQ/L Potassium Level 3.6 MEQ/L Chloride Level 101 MEQ/L Carbon Dioxide Level 28.3 MEQ/L Anion Gap 10 MEQ/L Estimat Glomerular Filtration Rate 65 ML/MIN Assessment and Plan Problem List: (1) STEMI (ST elevation myocardial infarction) ICD Codes: I21.3 - ST elevation (STEMI) myocardial infarction of unspecified site (2) CAD (coronary artery disease) ICD Codes: I25.10 - CAD (coronary artery disease) Status: Acute (3) Unstable angina ICD Codes: I20.0 - Unstable angina Status: Acute (4) PVD (peripheral vascular disease) ICD Codes: I73.9 - PVD (peripheral vascular disease) Status: Acute (5) HTN (hypertension) ICD Codes: I10 - Essential (primary) hypertension Status: Chronic Assessment and Plan 1) Acute anterior STEMI s/p bifurcation stenting of the LAD/Diag Concern for acute stent thrombosis (called by Dr. Wasserman from [place], he did restent the LAD and this was acute stent thrombosis) 2) Con't ASA/Brilinta Brilinta for stent thrombosis which may be due to technical issues with stenting vs. Plavix non-responder Discussed with Dr. Wasserman, [facility] 3) Con't Statin/BB/ARB 4) EF 30% [facility] 5) Cardiovascularly stable for discharge Neal Garay DO November 02, 2017 17:53
== END 2017-11-02 12:20 | disposition home or self-care (01) | DRG 247 ==
LOC: NEDAMB 16:31 → HCPC 19:53
PROVIDERS: ADMIT Hospitalist; ATTEND Hospitalist
PROC: 0271356 Dilation of Coronary Artery, Two Arteries, Bifurcation, with Two Drug-eluting Intraluminal Devices, Percutaneous Approach (ICD-10-PCS; principal; 2017-10-31)
PROC: 4A023N7 Measurement of Cardiac Sampling and Pressure, Left Heart, Percutaneous Approach (ICD-10-PCS; 2017-10-31)
PROC: B2111ZZ Fluoroscopy of Multiple Coronary Arteries using Low Osmolar Contrast (ICD-10-PCS; 2017-10-31)
DX: I21.09 ST elevation (STEMI) myocardial infarction involving other coronary artery of anterior wall (principal); N17.9 Acute kidney failure, unspecified; T82.868A Thrombosis due to vascular prosthetic devices, implants and grafts, initial encounter; I11.0 Hypertensive heart disease with heart failure; I50.9 Heart failure, unspecified; T82.855A Stenosis of coronary artery stent, initial encounter; E11.51 Type 2 diabetes mellitus with diabetic peripheral angiopathy without gangrene; I25.110 Atherosclerotic heart disease of native coronary artery with unstable angina pectoris; E78.5 Hyperlipidemia, unspecified; E87.6 Hypokalemia; M54.9 Dorsalgia, unspecified; G89.29 Other chronic pain; I25.2 Old myocardial infarction; Z82.49 Family history of ischemic heart disease and other diseases of the circulatory system; Z87.891 Personal history of nicotine dependence
CPT/HCPCS: 80048; 85002; 85025; 92941; 93005; 93306; 93458; 99152; 99153; C1725; C1760; C1769; C1874; C1887; C1893; C9460; G0269; J1644; J2250; J2270; J2405; J3010; Q9967